=== PATIENT | male | born 1945 | race Caucasian/White ===

== ENCOUNTER → 2017-08-05 | Outpatient (CLI) | payer MEDICARE ==
--- NOTE | 2017-08-05 16:04 | P.STRESS ---
- Stress Test Note Stress Test Results/Findings: Exam Performed: NM stress cardiolite complete Exam Date: 08/05/17 Reason for Exam: Chest Pain Height: 5 ft 11 in Weight: 69.4 kg Protocol: Levon Cardiolite Stage: 1 Duration of Exercise: 4:01 Resting Heart Rate: 58 Resting Blood Pressure: 168/88 Maximum Achieved Heart Rate: 139 Maximum Achieved Blood Pressure: 190/77 85% PMHR: 128 100% PMHR: 150 METS: 5.8 Technologist Comment: Stress Test Results/Findings: This is a 71-year-old gentleman with history of hypertension, smoking and family history of ischemic heart disease being evaluated for symptoms of chest pain and shortness of breath. Baseline EKG showed a sinus rhythm with normal TX interval and QRS duration with occasional PVCs. Patient woke on the Levon protocol for about 4 minutes. The test was stopped because of complaints of shortness of breath. EKGs taken during the exercise showed artifacts with occasional PVCs. There is J-point depression with upsloping ST segments. Patient did not experience any chest pain. Final impression #1. Limited excess capacity #2 negative stress test #3 occasional to frequent PVCs during exercise #4 report on the nuclear images to be given by the radiologist.
--- NOTE | 2017-08-05 16:36 | ECHOF ---
Referral Reason:R07.9 Chest Pain, I10 Hypertension MEASUREMENTS -------- HEIGHT: 180.3 cm WEIGHT: 69.4 kg BP: 186/104 RVIDd: 3.3 cm (< 3.3) IVSd: 1.3 cm (0.6 - 1.1) LVIDd: 4.1 cm (3.9 - 5.3) LVPWd: 1.5 cm (0.6 - 1.1) IVSs: 1.4 cm LVIDs: 2.4 cm LVPWs: 1.6 cm LAESV Index (A-L): 34.87 ml/m Ao Diam: 3.0 cm (2.0 - 3.7) AV Cusp: 1.9 cm (1.5 - 2.6) LA Diam: 3.8 cm (2.7 - 3.8) EPSS: 0.5 cm MV E Leon: 0.88 m/s MV DecT: 203 ms MV A Leon: 1.02 m/s MV E/A Ratio: 0.87 RAP: 5.00 mmHg RVSP: 35.12 mmHg MV EF SLOPE: 107.94 mm/s (70 - 150) MV EXCURSION: 2.10 cm (> 18.000) FINDINGS -------- Resting bradycardia (HR<60bpm). This was a technically good study. The left ventricular size is normal. Left ventricular wall thickness is normal. Left ventricular systolic function is hyperdynamic with an estimated EF of >70%. The right ventricle is mildly enlarged. LA is moderately dilated 34-39 ml/m2 RA appears enlarged. Aortic valve is trileaflet and is mildly thickened. There is no evidence of aortic regurgitation. There is no evidence of aortic stenosis. The mitral valve leaflets are mildly thickened. Mild mitral regurgitation is present. Mild tricuspid regurgitation present. There is borderline pulmonary hypertension. The right ventr icular systolic pressure, as measured by Doppler, is 35.12mmHg. Trace/mild (physiologic) pulmonic regurgitation. The aortic root size is normal. Normal inferior vena cava with normal inspiratory collapse consistent with estimated right atrial pre ssure of 5 mmHg. There is no pericardial effusion. CONCLUSIONS -------- 1. Resting bradycardia (HR<60bpm). 2. This was a technically good study. 3. The left ventricular size is normal. 4. Left ventricular wall thickness is normal. 5. Left ventricular systolic function is hyperdynamic with an estimated EF of >70%. 6. The right ventricle is mildly enlarged. 7. LA is moderately dilated 34-39 ml/m2 8. RA appears enlarged. 9. Aortic valve is trileaflet and is mildly thickened. 10. The mitral valve leaflets are mildly thickened. 11. Mild mitral regurgitation is present. 12. Mild tricuspid regurgitation present. 13. There is borderline pulmonary hypertension. 14. The right ventricular systolic pressure, as measured by Doppler, is 35.12mmHg. 15. Trace/mild (physiologic) pulmonic regurgitation. 16. The aortic root size is normal. 17. There is no pericardial effusion. LEGAL ASSOCIATE: Steve Mitchell RDCS
--- NOTE | 2017-08-07 09:05 | NM ---
EXAMINATION TYPE: NM stress cardiolite complete DATE OF EXAM: 08/05/2017 COMPARISON: 04/16/2015 HISTORY: Chest pain and hypertension TECHNIQUE: After the intravenous administration of 10.47 mCi Tc 99m Sestamibi - Rest images obtained 45 minutes post injection. The patient exercised using a BROOKE protocol and 1 minute prior to peak exercise was injected with 26.8 mCi Tc 99m Sestamibi - Stress images obtained 30 minutes post inject ion. FINDINGS: Targeted heart rate was achieved during performance of the study. Review of stress and rest SPECT franki ges demonstrates no distinct perfusion abnormality. Gated analysis shows normal wall motion with an estimated left ventricular ejection fraction of 69 at rest and 59% at stress % (60% on the prior exam ). TID is calculated to be within normal limits at 0.9 IMPRESSION: 1. No scintigraphic evidence for reversible ischemia, unchanged from the prior exam of 2014. 2. Estimated left ventricular ejection fraction of 69% at rest and 59% at stress.
== END | disposition home or self-care (01) ==
LOC: RADNMMAIN 07:34
PROVIDERS: ATTEND Family Medicine
DX: I27.20 Pulmonary hypertension, unspecified (principal); I08.1 Rheumatic disorders of both mitral and tricuspid valves; I10 Essential (primary) hypertension
CPT/HCPCS: 93017; 93306; 78452; A9500

== ENCOUNTER → 2017-09-22 | Outpatient (CLI) | payer MEDICARE ==
--- NOTE | 2017-09-22 10:00 | XR ---
EXAMINATION TYPE: XR chest 2V DATE OF EXAM: 09/22/2017 COMPARISON: 01/18/2016 HISTORY: Shortness of breath TECHNIQUE: Frontal and lateral views of the chest are obtained. FINDINGS: Scattered senescent parenchymal changes noted. Hyperinflation compatible with COPD. No evidence for infiltrate. No evidence for atelectasis. Heart size is stable. Mediastinal structures are stable and grossly unremarkable. No evidence for hilar prominence. Degenerative changes dorsal spine. IMPRESSION: 1. No evidence for acute pulmonary disease.
== END | disposition home or self-care (01) ==
LOC: RADXRMAIN 09:42
PROVIDERS: ATTEND Otolaryngology
DX: R05 Cough (principal); R13.10 Dysphagia, unspecified
CPT/HCPCS: 71046

== ENCOUNTER 2017-09-23 10:26 | Day surgery (SDC) | payer MEDICARE ==
[~2017-09-23 10:26] MED LIST: LACTATED RINGERS 1,000 ML IV SCH
[2017-09-23] MEDS ORDERED: LIDOCAINE 1% 20 ML VIAL (10MG/ML) FOR IV START INTRADERMA ONE (12:32)
[2017-09-23 12:38] VITALS: RESP 16; TEMP 97.6
--- NOTE | 2017-09-23 12:44 | P.GSHP ---
History of Present Illness H&P Date: 09/23/17 Chief Complaint: GERD, epigastric pain This is a 71-year-old male sex complaints of GERD and epigastric pain. Patient rents today for EGD. Past Medical History Past Medical History: GERD/Reflux, Hypertension, Thyroid Disorder Additional Past Medical History / Comment(s): chronic knee pain History of Any Multi-Drug Resistant Organisms: None Reported Past Surgical History: Hernia Repair Additional Past Surgical History / Comment(s): Right shoulder Past Anesthesia/Blood Transfusion Reactions: No Reported Reaction Past Psychological History: No Psychological Hx Reported Smoking Status: Former smoker Past Alcohol Use History: Daily, Heavy Additional Past Alcohol Use History / Comment(s): STOPPED SMOKING IN JUN 2017. Smoked 2 PPD for > 26 yrs. 3 beers daily Past Drug Use History: None Reported - Past Family History Mother Family Medical History: Cancer Medications and Allergies Home Medications Medication Instructions Recorded Confirmed Type Levothyroxine Sodium [Synthroid] 25 mcg PO DAILY 12/07/13 09/18/17 History Benazepril HCl [Lotensin] 20 mg PO QAM 02/05/16 09/18/17 History Ibuprofen [Motrin] 800 mg PO ONCE PRN 02/27/16 09/18/17 History Aspirin [Adult Low Dose Aspirin EC] 81 mg PO DAILY 09/18/17 09/18/17 History Cholecalciferol [Vitamin D3] 1,000 unit PO DAILY 09/18/17 09/23/17 History Omeprazole 40 mg PO DAILY 09/18/17 09/23/17 History Allergies Allergy/AdvReac Type Severity Reaction Status Date / Time No Known Allergies Allergy Verified 09/18/17 11:50 Surgical - Exam Vital Signs Temp Pulse Resp BP Pulse Ox 97.6 F 55 L 16 168/88 98 09/23/17 12:36 09/23/17 12:36 09/23/17 12:36 09/23/17 12:36 09/23/17 12:36 - General well developed, no distress - Eyes PERRL - ENT normal pinna, normal nares - Neck no masses - Respiratory normal expansion - Cardiovascular Rhythm: regular - Abdomen Abdomen: soft, non tender Assessment and Plan Assessment: GERD, epigastric pain. We'll perform EGD.
[2017-09-23] MEDS ORDERED: PROPOFOL 10 MG/ML 20 ML VIAL IV ONE (12:53)
--- NOTE | 2017-09-23 13:06 | P.OP ---
Date of Procedure: 09/23/17 Preoperative Diagnosis: GERD Postoperative Diagnosis: Antral gastritis Hiatal hernia Esophagitis Procedure(s) Performed: EGD Anesthesia: MAC Surgeon: Miky Rivera Pathology: other (Antrum, esophagus) Condition: stable Disposition: PACU Description of Procedure: The patient's placed on the endoscopy table lateral position. He received IV sedation. The gastroscope placed oropharynx passed in the esophagus and into the stomach. The scope was then placed through the pylorus. The first and second portion of the duodenum appeared normal. The scope was then brought back the antrum and this appeared mildly inflamed. A biopsies performed. Scope was then retroflexed and the remainder of the stomach appeared normal. There was a moderate size hiatal hernia. The GE junction was at 38 cm. The distal esophagus appeared inflamed and a biopsies performed. The proximal esophagus appeared normal. The scope was withdrawn.
[2017-09-23 13:24] VITALS: PULSE 53
[2017-09-23 13:40] VITALS: BP 148/88
== END 2017-09-23 13:47 | disposition home or self-care (01) ==
LOC: ORWHC2ENDO 10:26
PROVIDERS: ATTEND Surgery
DX: K29.50 Unspecified chronic gastritis without bleeding (principal); I10 Essential (primary) hypertension; K21.0 Gastro-esophageal reflux disease with esophagitis; K44.9 Diaphragmatic hernia without obstruction or gangrene; G89.29 Other chronic pain; E07.9 Disorder of thyroid, unspecified; Z87.891 Personal history of nicotine dependence; Z79.899 Other long term (current) drug therapy; Z79.82 Long term (current) use of aspirin
CPT/HCPCS: 88305; 43239; J2704

== ENCOUNTER 2018-04-15 06:56 | Day surgery (SDC) | payer MEDICARE ==
[2018-04-13 13:20] VITALS: BMI 24.0
[~2018-04-15 06:56] MED LIST changes: +LIDOCAINE 1% 20 ML VIAL (10MG/ML) FOR IV START INTRADERMA PRN; +MIDAZOLAM 2 MG/2 ML VIAL IV PRN
[2018-04-15 07:15] VITALS: TEMP 97.8
[2018-04-15] MEDS ORDERED: LIDOCAINE 1% INJ 10MG/ML (20 ML MDV) ONE (07:47)
[2018-04-15] MEDS ORDERED: PROPOFOL 10 MG/ML 20 ML VIAL IV ONE (07:47)
--- NOTE | 2018-04-15 07:54 | P.GSHP ---
History of Present Illness H&P Date: 04/15/18 Chief Complaint: GERD 's is a 72-year-old male who's had some issues with GERD. Patient rents today for EGD. His recent esophagram shows no evidence of reflux. Or hiatal hernia. Past Medical History Past Medical History: GERD/Reflux, Hypertension, Osteoarthritis (OA), Thyroid Disorder Additional Past Medical History / Comment(s): abdominal pain, varicose veins, History of Any Multi-Drug Resistant Organisms: None Reported Past Surgical History: Hernia Repair, Joint Replacement Additional Past Surgical History / Comment(s): left knee replacement, rt shoulder surgery, kaleb cataracts Past Anesthesia/Blood Transfusion Reactions: No Reported Reaction Smoking Status: Former smoker - Past Family History Mother Family Medical History: Cancer Father Family Medical History: Cancer Daughter(s) Family Medical History: Cancer Medications and Allergies Home Medications Medication Instructions Recorded Confirmed Type Levothyroxine Sodium [Synthroid] 25 mcg PO DAILY 12/07/13 04/15/18 History Benazepril HCl [Lotensin] 20 mg PO QAM 02/05/16 04/15/18 History Aspirin [Adult Low Dose Aspirin EC] 81 mg PO DAILY 09/18/17 04/13/18 History Omeprazole [PriLOSEC] 20 mg PO AC-[id number] 04/13/18 04/15/18 History Allergies Allergy/AdvReac Type Severity Reaction Status Date / Time No Known Allergies Allergy Verified 04/15/18 07:09 Surgical - Exam Vital Signs Temp Pulse Resp BP Pulse Ox 97.8 F 85 18 160/77 97 04/15/18 07:14 04/15/18 07:14 04/15/18 07:14 04/15/18 07:14 04/15/18 07:14 - General well developed, well nourished, no distress - Eyes PERRL - ENT normal pinna - Neck no masses - Respiratory normal expansion - Cardiovascular Rhythm: regular - Abdomen Abdomen: soft, non tender Assessment and Plan Assessment: History of GERD. We'll perform EGD.
--- NOTE | 2018-04-15 08:02 | P.OP ---
Date of Procedure: 04/15/18 Preoperative Diagnosis: GERD Postoperative Diagnosis: Mild antral gastritis Small sliding hiatal hernia Esophageal biopsy pathology pending Procedure(s) Performed: EGD Anesthesia: MAC Surgeon: Miky Rivera Pathology: other (Antrum, esophagus) Condition: stable Disposition: PACU Description of Procedure: The patient's placed on the endoscopy table in the lateral position. He received IV sedation. The gastroscope placed oropharynx and passed in the esophagus and into the stomach. The scope was then placed through the pylorus. The first and second portion of the duodenum appeared normal. The scope was then brought back the antrum and this appeared mildly inflamed. A biopsies performed. Scope was then retroflexed and the remainder stomach appeared normal. There was a small sliding hiatal hernia. The GE junction was at 38 cm. The distal esophagus did not appear to have any significant inflammation. A biopsies performed. The proximal esophagus appeared normal. The scope was withdrawn for patient.
[2018-04-15 08:33] VITALS: RESP 16
[2018-04-15 08:46] VITALS: BP 148/86; PULSE 64
== END 2018-04-15 08:58 | disposition home or self-care (01) ==
LOC: ORWHC2ENDO 06:56
PROVIDERS: ATTEND Surgery
DX: K29.50 Unspecified chronic gastritis without bleeding (principal); K21.9 Gastro-esophageal reflux disease without esophagitis; K44.9 Diaphragmatic hernia without obstruction or gangrene; I10 Essential (primary) hypertension; M19.90 Unspecified osteoarthritis, unspecified site; E07.9 Disorder of thyroid, unspecified; Z87.891 Personal history of nicotine dependence; Z79.82 Long term (current) use of aspirin; Z79.890 Hormone replacement therapy; Z79.899 Other long term (current) drug therapy
CPT/HCPCS: 88305; 43239; J2001; J2704

== ENCOUNTER → 2018-05-26 | Outpatient (CLI) | payer MEDICARE ==
--- NOTE | 2018-05-26 14:38 | XR ---
EXAMINATION TYPE: XR chest 2V DATE OF EXAM: 05/26/2018 COMPARISON: Chest x-ray September 22, 2017 HISTORY: Cough for 2 days. TECHNIQUE: Frontal and lateral views of the chest are obtained. FINDINGS: There is chronic prideful change without suspicious focal air space opacity, pleural effus ion, or pneumothorax seen. The cardiac silhouette size is within normal limits with atherosclerotic change in the aortic knob. Surgical change right shoulder level is noted. IMPRESSION: Chronic emphysematous change without acute pulmonary process.
== END ==
LOC: RADXRMAIN 13:33
PROVIDERS: ATTEND Physician Assistant
DX: J43.9 Emphysema, unspecified (principal)
CPT/HCPCS: 71046

== ENCOUNTER → 2018-08-18 | Outpatient (CLI) | payer MEDICARE ==
--- NOTE | 2018-08-18 16:15 | XR ---
EXAMINATION TYPE: XR chest 2V DATE OF EXAM: 08/18/2018 COMPARISON: Chest x-ray May 26, 2018 HISTORY: Hemoptysis for 3 days. TECHNIQUE: Frontal and lateral views of the chest are obtained. FINDINGS: Underlying emphysematous change is felt present seen best on lateral view. There is no foca l air space opacity, pleural effusion, or pneumothorax seen. The cardiac silhouette size is within n ormal limits. Surgical change with large fixating stable right shoulder level is redemonstrated.. IMPRESSION: No acute cardiopulmonary process. No significant change from prior chest x-ray.
== END | disposition home or self-care (01) ==
LOC: RADXRMAIN 15:19
PROVIDERS: ATTEND Physician Assistant
DX: J20.9 Acute bronchitis, unspecified (principal)
CPT/HCPCS: 71046

== ENCOUNTER → 2019-04-26 | Outpatient (CLI) | payer MEDICARE ==
--- NOTE | 2019-04-26 09:38 | XR ---
EXAMINATION TYPE: XR chest 2V DATE OF EXAM: 04/26/2019 COMPARISON: 08/18/18 HISTORY: Shortness of breath TECHNIQUE: Frontal and lateral views of the chest are obtained. FINDINGS: Scattered senescent parenchymal changes noted. Hyperinflation compatible with COPD. No evidence for infiltrate. No evidence for atelectasis. Heart size is stable. Mediastinal structures are stable and grossly unremarkable. No evidence for hilar prominence. Degenerative changes dorsal spine. IMPRESSION: 1. No evidence for acute pulmonary disease.
== END | disposition home or self-care (01) ==
LOC: RADXRMAIN 08:54
PROVIDERS: ATTEND Family Medicine
DX: J18.9 Pneumonia, unspecified organism (principal)
CPT/HCPCS: 71046

== ENCOUNTER → 2019-05-16 | Outpatient (CLI) | payer MEDICARE ==
--- NOTE | 2019-05-16 09:37 | US ---
EXAMINATION TYPE: US duplex aorta DATE OF EXAM: 05/16/2019 COMPARISON: CT & US 2012 CLINICAL HISTORY: Z13.6 Screening for cardiovascular disorders. Intermittent abdomen pain EXAM MEASUREMENTS: Abdominal Aorta: Proximal: 2.4 x 2.4cm Mid: 1.6 x 1.8cm Distal: 1.3 x 1.6cm Bifurcation: not seen Visualized portions of abdominal aorta appear wnl, bifurcation obscured by overlying midline bowel ga s. IMPRESSION: Aortoiliac bifurcation is obscured by bowel gas. In the remainder of the abdominal aorta there is no sonographic evidence of aneurysm.
== END | disposition home or self-care (01) ==
LOC: RADUSWWP 08:01
PROVIDERS: ATTEND Family Medicine
DX: Z13.6 Encounter for screening for cardiovascular disorders (principal); R14.3 Flatulence
CPT/HCPCS: 93979

== ENCOUNTER → 2019-07-15 | Outpatient (CLI) | payer MEDICARE ==
--- NOTE | 2019-07-16 15:01 | ECHOF ---
Referral Reason:I27.20 Pulmonary Hypertension MEASUREMENTS -------- HEIGHT: 162.6 cm WEIGHT: 81.2 kg BP: RVIDd: 4.3 cm (< 3.3) IVSd: 1.2 cm (0.6 - 1.1) LVIDd: 4.2 cm (3.9 - 5.3) LVPWd: 0.9 cm (0.6 - 1.1) IVSs: 1.4 cm LVIDs: 3.1 cm LVPWs: 1.4 cm LA Diam: 4.3 cm (2.7 - 3.8) LAESV Index (A-L): 34.31 ml/m Ao Diam: 3.1 cm (2.0 - 3.7) AV Cusp: 2.3 cm (1.5 - 2.6) LA Diam: 4.5 cm (2.7 - 3.8) MV EXCURSION: 35.748 mm (> 18.000) MV EF SLOPE: 122 mm/s (70 - 150) EPSS: 0.5 cm MV E Elon: 0.90 m/s MV DecT: 217 ms MV A Leon: 1.04 m/s MV E/A Ratio: 0.86 RAP: 5.00 mmHg RVSP: 39.86 mmHg FINDINGS -------- Sinus rhythm. This was a technically good study. The left ventricular size is normal. There is mild concentric left ventricular hypertrophy. Overa ll left ventricular systolic function is normal with, an EF between 55 - 60 %. The diastolic fillin g pattern is normal for the age of the patient 17.48. The right ventricle is moderately enlarged. The left atrium is mildly dilated. LA is moderately dilated 34-39 ml/m2 The right atrial size is normal. There is mild aortic valve sclerosis. There is no evidence of aortic regurgitation. Mild mitral annular calcification present. Mild mitral regurgitation is present. Mild tricuspid regurgitation present. There is mild pulmonary hypertension. The right ventricular systolic pressure, as measured by Doppler, is 39.86mmHg. There is no pulmonic regurgitation present. The aortic root size is normal. There is no pericardial effusion. CONCLUSIONS -------- 1. Sinus rhythm. 2. This was a technically good study. 3. The left ventricular size is normal. 4. There is mild concentric left ventricular hypertrophy. 5. Overall left ventricular systolic function is normal with, an EF between 55 - 60 %. 6. The diastolic filling pattern is normal for the age of the patient 17.48 7. The right ventricle is moderately enlarged. 8. The left atrium is mildly dilated. 9. LA is moderately dilated 34-39 ml/m2 10. The right atrial size is normal. 11. There is mild aortic valve sclerosis. 12. Mild mitral annular calcification present. 13. Mild mitral regurgitation is present. 14. Mild tricuspid regurgitation present. 15. There is mild pulmonary hypertension. 16. The right ventricular systolic pressure, as measured by Doppler, is 39.86mmHg. 17. There is no pulmonic regurgitation present. 18. The aortic root size is normal. 19. There is no pericardial effusion. NEEDLE MAKER: Amanda Eduardo RDCS
== END | disposition home or self-care (01) ==
LOC: RADECHMAIN 14:45
PROVIDERS: ATTEND Family Medicine
DX: I08.1 Rheumatic disorders of both mitral and tricuspid valves (principal); I27.20 Pulmonary hypertension, unspecified
CPT/HCPCS: 93306

== ENCOUNTER 2019-09-22 08:54 | Emergency (ER) | payer MEDICARE ==
[2019-09-22 09:00] VITALS: RESP 18
[2019-09-22] MEDS ORDERED: SODIUM CHLORIDE 0.9% 1,000 ML IV STA (09:13)
[2019-09-22] MEDS ORDERED: PANTOPRAZOLE 40 MG/10 ML VIAL IVP STA (09:13)
--- NOTE | 2019-09-22 09:16 | ED ---
General Adult HPI - General Chief complaint: Dizziness Stated complaint: dizziness/black stool Time Seen by Provider: 09/22/19 09:05 Source: patient, RN notes reviewed Mode of arrival: ambulatory Limitations: no limitations - History of Present Illness Initial comments: This is a 73-year-old male presents emergency Department with chief complaint of dizziness, black stools. Patient states this felt dizzy last day or so states is more dizzy when he is down and turned to the right. patient states he's had no symptoms today. He denies any current headache, blurred vision or any focal weakness. Patient states that the dizziness is very mild. Patient talked to his primary care physician today on the phone describing his symptoms and was advised to come emergency department. Patient states that he had one episode of black stools yesterday. Denies any bright red blood and no rectal pain or abdominal pain Patient has no current abdominal pain, chest pain or shortness of breath no exertional dyspnea. Patient does take 81 mg aspirin, blood pressure medication. He states his last dose for his blood pressure medication was at midnight. No prior GI bleeding. He states he was evaluated once for this from by his Dr for black stools but was related to Pepto-Bismol use. Denies any leg pain, leg swelling denies any back discomfort. - Related Data Home Medications Medication Instructions Recorded Confirmed Levothyroxine Sodium [Synthroid] 25 mcg PO DAILY 12/07/13 09/22/19 Benazepril HCl [Lotensin] 20 mg PO QAM 02/05/16 09/22/19 Aspirin [Adult Low Dose Aspirin EC] 81 mg PO DAILY 09/18/17 09/22/19 Omeprazole [PriLOSEC] 20 mg PO AC-BRKFST 04/13/18 09/22/19 Albuterol Sulfate [Ventolin HFA] 2 puff INHALATION RT-Q4H PRN 09/22/19 09/22/19 Fluticasone Nasal [place] [Flonase 2 spr EA NOSTRIL BID PRN 09/22/19 09/22/19 Nasal [place]] traMADol HCL 50 mg PO QID PRN 09/22/19 09/22/19 Previous Rx's Medication Instructions Recorded Meclizine [Antivert] 25 mg PO TID PRN #15 tab 09/22/19 Allergies Allergy/AdvReac Type Severity Reaction Status Date / Time No Known Allergies Allergy Verified 09/22/19 09:32 Review of Systems ROS Statement: Those systems with pertinent positive or pertinent negative responses have been documented in the HPI. ROS Other: All systems not noted in ROS Statement are negative. Past Medical History Past Medical History: GERD/Reflux, Hypertension, Osteoarthritis (OA), Thyroid Disorder Additional Past Medical History / Comment(s): abdominal pain, varicose veins, History of Any Multi-Drug Resistant Organisms: None Reported Past Surgical History: Hernia Repair, Joint Replacement Additional Past Surgical History / Comment(s): left knee replacement, rt shoulder surgery, kaleb cataracts Past Anesthesia/Blood Transfusion Reactions: No Reported Reaction Past Psychological History: No Psychological Hx Reported Smoking Status: Former smoker Past Alcohol Use History: Daily Past Drug Use History: None Reported - Past Family History Mother Family Medical History: Cancer Father Family Medical History: Cancer Daughter(s) Family Medical History: Cancer General Exam Limitations: no limitations General appearance: alert, in no apparent distress, other (Blood pressure noted to be elevated will recheck in 10 minutes.) Head exam: Present: atraumatic, normocephalic, normal inspection Eye exam: Present: normal appearance, PERRL, EOMI. Absent: scleral icterus, conjunctival injection, periorbital swelling Neck exam: Present: normal inspection. Absent: tenderness, meningismus, lymphadenopathy Respiratory exam: Present: normal lung sounds bilaterally. Absent: respiratory distress, wheezes, rales, rhonchi, stridor Cardiovascular Exam: Present: regular rate, normal rhythm, normal heart sounds. Absent: systolic murmur, diastolic murmur, rubs, gallop, clicks GI/Abdominal exam: Present: soft, normal bowel sounds. Absent: distended, tenderness, guarding, rebound, rigid Rectal exam: Present: normal inspection, normal rectal tone. Absent: black stool, bloody stool Neurological exam: Present: alert, oriented X3, CN II-XII intact Skin exam: Present: warm, dry, intact, normal color. Absent: rash Course Vital Signs 09/22/19 09/22/19 08:57 09:16 Temperature 98.0 F Pulse Rate 95 77 Respiratory 18 18 Rate Blood Pressure 229/79 160/85 O2 Sat by Pulse 99 99 Oximetry - Reevaluation(s) Reevaluation #1: 09/22/19 09:51 Patient updated on results, reevaluated has not had any dizziness, is able turn right and left no episodes of dizziness. He is asymptomatic at this time pending Hemoccult and remaining labs. Reevaluation #2: 09/22/19 10:11 Patient updated on results. Patient was ambulated by myself and nurse in the emergency department with no difficulty with dizziness or ataxia. Patient will be discharged in stable condition. EKG Findings - EKG Comments: EKG Findings:: EKG performed at 9:10 sinus rhythm with rate of 70 NM 156 QRS 84 QT/QTC 370/402. Still patient pressure normal axis. - EKG Results: EKG: interpreted by SHERI Medical Decision Making - Medical Decision Making 73-year-old male presented for an episode of dizziness, one episode of black stool. He is Hemoccult negative. Patient stated that he ate a whole box quarrels whether this may have caused the symptoms. Patient hemoglobin is stable at 15, EKG labs and vitals are all within normal limits. Patient we discharged with close follow-up return parameters discussed patient agrees to plan. - Lab Data Result diagrams: 09/22/19 09:17 09/22/19 09:17 Lab Results 09/22/19 09/22/19 09/22/19 Range/Units 09:17 09:17 09:17 WBC 7.1 (3.8-10.6) k/uL RBC 4.95 (4.30-5.90) m/uL Hgb 15.4 (13.0-17.5) gm/dL Hct 47.7 (39.0-53.0) % MCV 96.3 (80.0-100.0) fL MCH 31.1 (25.0-35.0) pg MCHC 32.4 (31.0-37.0) g/dL RDW 13.0 (11.5-15.5) % Plt Count 228 (150-450) k/uL Neutrophils % 69 % Lymphocytes % 17 % Monocytes % 8 % Eosinophils % 4 % Basophils % 1 % Neutrophils # 4.9 (1.3-7.7) k/uL Lymphocytes # 1.2 (1.0-4.8) k/uL Monocytes # 0.6 (0-1.0) k/uL Eosinophils # 0.3 (0-0.7) k/uL Basophils # 0.0 (0-0.2) k/uL PT 9.9 (9.0-12.0) sec INR 0.9 (<1.2) APTT 22.9 (22.0-30.0) sec Sodium 134 L (137-145) mmol/L Potassium 4.4 (3.5-5.1) mmol/L Chloride 99 (98-107) mmol/L Carbon Dioxide 25 (22-30) mmol/L Anion Gap 10 mmol/L BUN 19 (9-20) mg/dL Creatinine 1.06 (0.66-1.25) mg/dL Est GFR (CKD-EPI)AfAm 81 (>60 ml/min/1.73 sqM) Est GFR (CKD-EPI)NonAf 70 (>60 ml/min/1.73 sqM) Glucose 101 H (74-99) mg/dL Calcium 9.4 (8.4-10.2) mg/dL Magnesium 1.7 (1.6-2.3) mg/dL Total Bilirubin 0.6 (0.2-1.3) mg/dL AST 32 (17-59) U/L ALT 30 (4-49) U/L Alkaline Phosphatase 73 (38-126) U/L Troponin I (0.000-0.034) ng/mL Total Protein 7.4 (6.3-8.2) g/dL Albumin 4.3 (3.5-5.0) g/dL Lipase 119 (23-300) U/L Stool Occult Blood (Negative) 09/22/19 09/22/19 Range/Units 09:17 09:53 WBC (3.8-10.6) k/uL RBC (4.30-5.90) m/uL Hgb (13.0-17.5) gm/dL Hct (39.0-53.0) % MCV (80.0-100.0) fL MCH (25.0-35.0) pg MCHC (31.0-37.0) g/dL RDW (11.5-15.5) % Plt Count (150-450) k/uL Neutrophils % % Lymphocytes % % Monocytes % % Eosinophils % % Basophils % % Neutrophils # (1.3-7.7) k/uL Lymphocytes # (1.0-4.8) k/uL Monocytes # (0-1.0) k/uL Eosinophils # (0-0.7) k/uL Basophils # (0-0.2) k/uL PT (9.0-12.0) sec INR (<1.2) APTT (22.0-30.0) sec Sodium (137-145) mmol/L Potassium (3.5-5.1) mmol/L Chloride (98-107) mmol/L Carbon Dioxide (22-30) mmol/L Anion Gap mmol/L BUN (9-20) mg/dL Creatinine (0.66-1.25) mg/dL Est GFR (CKD-EPI)AfAm (>60 ml/min/1.73 sqM) Est GFR (CKD-EPI)NonAf (>60 ml/min/1.73 sqM) Glucose (74-99) mg/dL Calcium (8.4-10.2) mg/dL Magnesium (1.6-2.3) mg/dL Total Bilirubin (0.2-1.3) mg/dL AST (17-59) U/L ALT (4-49) U/L Alkaline Phosphatase (38-126) U/L Troponin I <0.012 (0.000-0.034) ng/mL Total Protein (6.3-8.2) g/dL Albumin (3.5-5.0) g/dL Lipase (23-300) U/L Stool Occult Blood Negative (Negative) Disposition Clinical Impression: Vertigo Disposition: HOME SELF-CARE Condition: Stable Instructions (If sedation given, give patient instructions): Dizziness (ED) Additional Instructions: Please return to the Emergency Department if symptoms worsen or any other concerns. Prescriptions: Meclizine [Antivert] 25 mg PO TID PRN #15 tab PRN Reason: Vertigo Is patient prescribed a controlled substance at d/c from ED?: No Referrals: Cali Guerra MD [Primary Care Provider] - 1-2 days Time of Disposition: 10:12
[2019-09-22 09:33] LABS: Basophils % (A) 1 %; Eosinophils # (A) 0.3 k/uL (0-0.7); Eosinophils % (A) 4 %; HCT 47.7 % (39.0-53.0); HGB 15.4 gm/dL (13.0-17.5); Lymphocytes # (A) 1.2 k/uL (1.0-4.8); Lymphocytes % (A) 17 %; MCH 31.1 pg (25.0-35.0); MCHC 32.4 g/dL (31.0-37.0); MCV 96.3 fL (80.0-100.0); Mean Platelet Volume 6.8; Monocytes # (A) 0.6 k/uL (0-1.0); Monocytes % (A) 8 %; Neutrophils # (A) 4.9 k/uL (1.3-7.7); Neutrophils % (A) 69 %; Platelet Count 228 k/uL (150-450); RBC 4.95 m/uL (4.30-5.90); WBC 7.1 k/uL (3.8-10.6)
[2019-09-22 09:42] LABS: INR 0.9 (<1.2); Partial Thromboplastin Time 22.9 sec (22.0-30.0); Prothrombin Time 9.9 sec (9.0-12.0)
[2019-09-22 09:43] LABS: Albumin 4.3 g/dL (3.5-5.0); Calcium 9.4 mg/dL (8.4-10.2); Magnesium 1.7 mg/dL (1.6-2.3); Potassium 4.4 mmol/L (3.5-5.1); Total Bilirubin 0.6 mg/dL (0.2-1.3); Total Protein 7.4 g/dL (6.3-8.2)
[2019-09-22 10:18] VITALS: BP 163/92; PULSE 78; TEMP 98.1
== END 2019-09-22 10:18 | disposition home or self-care (01) ==
LOC: EC 08:54
DX: R42 Dizziness and giddiness (principal); K21.9 Gastro-esophageal reflux disease without esophagitis; I10 Essential (primary) hypertension; E07.9 Disorder of thyroid, unspecified; M19.90 Unspecified osteoarthritis, unspecified site; Z79.890 Hormone replacement therapy; Z79.82 Long term (current) use of aspirin; Z79.899 Other long term (current) drug therapy; Z87.891 Personal history of nicotine dependence; Z96.652 Presence of left artificial knee joint
CPT/HCPCS: 99284 ×2; 96374 ×2; 96361 ×2; 36415; 93005; 86900; 86901; 80053; 83690; 83735; 84484; 85025; 85610; 85730; 86850; 82272; C9113

== ENCOUNTER 2019-12-03 09:07 | Emergency (ER) | payer MEDICARE ==
[2019-12-03 09:19] VITALS: BP 148/94; PULSE 82; RESP 18; TEMP 98.2
[2019-12-03] MEDS ORDERED: KETOROLAC 30 MG/ML 1 ML VIAL IM STA (09:58)
[2019-12-03] MEDS ORDERED: CYCLOBENZAPRINE 10MG STARTER 3 TAB BTL PO STA (10:06)
--- NOTE | 2019-12-03 10:07 | ED ---
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 He presents emergency department today for evaluation for concern for one week of a stiff neck and shoulder pains. He reports that when he returned to work after being off from Covid shut down and now with returning and he does a lot of work with his shoulders and neck and has done heavy lifting. Patient states that he's been doing some lidocaine patches and taking his 's Motrin with some relief. Patient reports that he has had no fevers or chills. Denies any chest pain, shortness of breath or visual changes. He states that he is following with his primary care doctor. Patient denies any falls or trauma. - Related Data Home Medications Medication Instructions Recorded Confirmed Levothyroxine Sodium [Synthroid] 25 mcg PO DAILY 12/07/13 09/22/19 Benazepril HCl [Lotensin] 20 mg PO QAM 02/05/16 09/22/19 Aspirin [Adult Low Dose Aspirin EC] 81 mg PO DAILY 09/18/17 09/22/19 Omeprazole [PriLOSEC] 20 mg PO AC-BRKFST 04/13/18 09/22/19 Albuterol Sulfate [Ventolin HFA] 2 puff INHALATION RT-Q4H PRN 09/22/19 09/22/19 Fluticasone Nasal [place] [Flonase 2 spr EA NOSTRIL BID PRN 09/22/19 09/22/19 Nasal [place]] traMADol HCL 50 mg PO QID PRN 09/22/19 09/22/19 Previous Rx's Medication Instructions Recorded Meclizine [Antivert] 25 mg PO TID PRN #15 tab 09/22/19 Cyclobenzaprine [Flexeril] 10 mg PO TID #12 tab 12/03/19 Ibuprofen [Motrin] 800 mg PO Q8H #20 tab 12/03/19 Lidocaine 5% Patch [Lidoderm 5% 1 patch TOPICAL DAILY #20 patch 12/03/19 Patch] Allergies Allergy/AdvReac Type Severity Reaction Status Date / Time No Known Allergies Allergy Verified 12/03/19 09:15 Review of Systems ROS Statement: Those systems with pertinent positive or pertinent negative responses have been documented in the HPI. ROS Other: All systems not noted in ROS Statement are negative. Past Medical History Past Medical History: GERD/Reflux, Hypertension, Osteoarthritis (OA), Thyroid Disorder Additional Past Medical History / Comment(s): abdominal pain, varicose veins, History of Any Multi-Drug Resistant Organisms: None Reported Past Surgical History: Hernia Repair, Joint Replacement Additional Past Surgical History / Comment(s): left knee replacement, rt shoulder surgery, kaleb cataracts Past Anesthesia/Blood Transfusion Reactions: No Reported Reaction Past Psychological History: No Psychological Hx Reported Smoking Status: Former smoker Past Alcohol Use History: Daily Past Drug Use History: None Reported - Past Family History Mother Family Medical History: Cancer Father Family Medical History: Cancer Daughter(s) Family Medical History: Cancer General Exam - General Exam Comments Initial Comments: 73 -year-old male. No distress. Limitations: no limitations General appearance: alert, in no apparent distress Head exam: Present: atraumatic, normocephalic, normal inspection Eye exam: Present: normal appearance, PERRL, EOMI. Absent: scleral icterus, conjunctival injection, periorbital swelling ENT exam: Present: normal exam, mucous membranes moist Neck exam: Present: normal inspection, other (Patient has paraspinal and trapezius muscle tenderness.). Absent: tenderness, meningismus, lymphadenopathy Respiratory exam: Present: normal lung sounds bilaterally. Absent: respiratory distress, wheezes, rales, rhonchi, stridor Cardiovascular Exam: Present: regular rate, normal rhythm, normal heart sounds. Absent: systolic murmur, diastolic murmur, rubs, gallop, clicks GI/Abdominal exam: Present: soft, normal bowel sounds. Absent: distended, tenderness, guarding, rebound, rigid Extremities exam: Present: normal inspection, full ROM, normal capillary refill. Absent: tenderness, pedal edema, joint swelling, calf tenderness Back exam: Present: normal inspection Neurological exam: Present: alert, oriented X3, CN II-XII intact Psychiatric exam: Present: normal affect, normal mood Skin exam: Present: warm, dry, intact, normal color. Absent: rash Course Vital Signs 12/03/19 09:16 Temperature 98.2 F Pulse Rate 82 Respiratory 18 Rate Blood Pressure 148/94 O2 Sat by Pulse 98 Oximetry Medical Decision Making - Medical Decision Making 73-year-old male presents emergency department today for concern for neck muscle spasms pain since returning to work. 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 This time he does have range of motion of his neck. He has no specific cervical tenderness. Patient had no fall or trauma. At this time Patient does request us to have prescription for Motrin. I discussed the Patient can also be discharged with prescription for Lidoderm patches and advised follow-up with primary care physician. Disposition Clinical Impression: Neck muscle spasm Disposition: ADMITTED IP TO THIS [facility] Condition: Stable Instructions (If sedation given, give patient instructions): Cervical Strain (ED), Cervical Sprain (ED) Additional Instructions: Please use medication as discussed. Please follow up with family doctor if symptoms have not improved over the next two days. Please return to the emergency room if your symptoms increase or worsen or for any other concerns. Prescriptions: Cyclobenzaprine [Flexeril] 10 mg PO TID #12 tab Lidocaine 5% Patch [Lidoderm 5% Patch] 1 patch TOPICAL DAILY #20 patch Ibuprofen [Motrin] 800 mg PO Q8H #20 tab Is patient prescribed a controlled substance at d/c from ED?: No Referrals: Cali Guerra MD [Primary Care Provider] - 1-2 days Time of Disposition: 10:05
== END 2019-12-03 10:50 | disposition other institution (70) ==
LOC: EC 09:07
DX: M62.830 Muscle spasm of back (principal); M25.512 Pain in left shoulder; M25.511 Pain in right shoulder; K21.9 Gastro-esophageal reflux disease without esophagitis; I10 Essential (primary) hypertension; M19.90 Unspecified osteoarthritis, unspecified site; E07.9 Disorder of thyroid, unspecified; Z79.890 Hormone replacement therapy; Z79.82 Long term (current) use of aspirin; Z79.899 Other long term (current) drug therapy; Z96.652 Presence of left artificial knee joint; Z87.891 Personal history of nicotine dependence
CPT/HCPCS: 96372; 99284; J1885

== ENCOUNTER → 2020-02-21 | Outpatient (CLI) | payer MEDICARE ==
[2020-02-21 12:56] LABS: T4, Free (Free Thyroxine) 0.9 ng/dL (0.78-2.19)
--- NOTE | 2020-02-21 16:12 | US ---
EXAMINATION TYPE: US thyroid st tissue head/neck DATE OF EXAM: 02/21/2020 COMPARISON: NONE CLINICAL HISTORY: R22.1 SWELLING/MASS/LUMP IN NECK. GLAND SIZE: Right Lobe: 4.9 x 1.9 x 1.2 cm Overall Parenchyma: heterogenous Left Lobe: 4.4 x 1.6 x 1.4 cm Overall Parenchyma: heterogeneous Isthmus Thickness: 0.4 cm NODULES RIGHT: # of nodules measured on right: 2 1. 0.5 X 0.4 x 0.4 cm hypoechoic solid nodule at the upper pole with well-defined margins; . This nodule is wider than tall and shows intranodular vascularity. 2. 0.4 X 0.3 x 0.5 cm hypoechoic cystic nodule at the mid pole with well-defined margins; . This no dule is wider than tall and shows no intranodular vascularity. LEFT: # of nodules measured on left: 1 1. 1.1 X 1.1 x 0.9 cm isoechoic solid nodule at the lower pole with well-defined margins; . This n odule is wider than tall and shows intranodular vascularity. ISTHMUS: # of nodules measured in the isthmus: 0 Bilateral neck scanned, no evidence of lymphadenopathy. IMPRESSION: 1. 1 cm nodule left lobe thyroid. 2. Subcentimeter nodules right lobe thyroid
[2020-02-21 19:05] LABS: Hemoglobin A1C 5.3 % (4.0-6.0)
== END | disposition home or self-care (01) ==
LOC: RADUSWWP 10:46
PROVIDERS: ATTEND Otolaryngology
DX: E04.1 Nontoxic single thyroid nodule (principal); R53.83 Other fatigue; E03.9 Hypothyroidism, unspecified
CPT/HCPCS: 36415; 76536; 83036; 84439; 84443

== ENCOUNTER → 2020-04-18 | Outpatient (CLI) | payer MEDICARE ==
--- NOTE | 2020-04-18 22:22 | CT ---
EXAMINATION TYPE: CT abdomen pelvis w con DATE OF EXAM: 04/18/2020 COMPARISON: 10/28/2012 INDICATION: Abdominal pain and bloating DLP: 1169 mGycm, Automated exposure control for dose reduction was used. CONTRAST: 100 mL of Isovue 300. Study performed with Oral Contrast TECHNIQUE: Axial images were obtained from above the diaphragm to the pubic rami in the axial plane a t 5 mm thick sections. Reconstructed images are reviewed on the computer in the coronal plane. FINDINGS: Limited CT sections are obtained the lung bases. The lung bases are clear. CT ABDOMEN: Liver: There is an ill-defined hypodensity within the upper right lobe liver currently measures 1.5 c m which is smaller than the 3.4 cm previous may be a small hemangioma. Liver otherwise appears unrema rkable. Spleen: Normal Pancreas: Normal Adrenal glands: Is mild thickening of the bilateral adrenal glands measuring 1.0 cm on the left and 1 .4 cm on the right. Gallbladder: Gallstone is present. Kidneys: No masses are evident. No hydronephrosis is present. No cysts are present. Delayed images were obtained through the kidneys, which remain unremarkable. Aorta: Vascular calcification is within the aorta. Inferior vena cava: Normal. CT PELVIS: Loops of bowel within the abdomen and pelvis are normal. There are loops of bowel which are incom pletely distended or lack oral contrast limiting their evaluation. Appendix: Not visualized. No suspicious dilated tubular structures or inflammatory changes are eviden t. Urinary bladder: Decompressed Genitourinary structures: Prostate is slightly prominent and contains calcification Osseous structures: No suspicious lytic or sclerotic lesions. IMPRESSIONS: 1. Cholelithiasis. 2. Mild stable thickening of the adrenal glands bilaterally. 3. Suspected hemangioma right upper lobe liver appears smaller than the comparison.
== END | disposition home or self-care (01) ==
LOC: RADCTMAIN 13:03
PROVIDERS: ATTEND Nurse Practitioner
DX: K80.20 Calculus of gallbladder without cholecystitis without obstruction (principal); E27.8 Other specified disorders of adrenal gland; R10.9 Unspecified abdominal pain
CPT/HCPCS: 82565; 84520; 74177; 36415; Q9967

== ENCOUNTER → 2020-04-30 | Outpatient (CLI) | payer MEDICARE | END | disposition home or self-care (01) | LOC: LABWHC1 15:43 | PROVIDERS: ATTEND Family Medicine | DX: Z20.828 Contact with and (suspected) exposure to other viral communicable diseases (principal) | CPT/HCPCS: U0003; C9803 ==

== ENCOUNTER 2020-05-10 09:53 | Day surgery (SDC) | payer MEDICARE ==
[2020-05-09 09:34] VITALS: BMI 25.5
[~2020-05-10 09:53] MED LIST changes: +LIDOCAINE 1% (10MG/ML) FOR IV START INTRADERMA PRN; -LIDOCAINE 1% 20 ML VIAL (10MG/ML) FOR IV START INTRADERMA PRN; -MIDAZOLAM 2 MG/2 ML VIAL IV PRN
[2020-05-10 10:56] VITALS: TEMP 98.3
[2020-05-10] MEDS ORDERED: PROPOFOL 10 MG/ML 20 ML VIAL IV ONE (11:44)
[2020-05-10] MEDS ORDERED: LIDOCAINE 1% INJ 10MG/ML (20 ML MDV) ONE (11:44)
--- NOTE | 2020-05-10 11:49 | P.GSHP ---
History of Present Illness H&P Date: 05/10/20 Chief Complaint: GERD screeningColonoscopy This a 74-year-old male presents today for EGD and screening colonoscopy. Patient denies any rectal bleeding. He states had GERD for some time. Past Medical History Past Medical History: COPD, GERD/Reflux, Hypertension, Osteoarthritis (OA), Thyroid Disorder Additional Past Medical History / Comment(s): varicose veins, abdominal pain History of Any Multi-Drug Resistant Organisms: None Reported Past Surgical History: Hernia Repair, Joint Replacement Additional Past Surgical History / Comment(s): left knee replacement, rt shoulder surgery, kaleb cataracts Past Anesthesia/Blood Transfusion Reactions: No Reported Reaction Smoking Status: Former smoker - Past Family History Mother Family Medical History: Cancer Father Family Medical History: Cancer Daughter(s) Family Medical History: Cancer Additional Family Medical History / Comment(s): liver and kidney Medications and Allergies Home Medications Medication Instructions Recorded Confirmed Type Levothyroxine Sodium [Synthroid] 25 mcg PO DAILY 12/07/13 05/10/20 History Benazepril HCl [Lotensin] 20 mg PO QAM 02/05/16 05/10/20 History Aspirin [Adult Low Dose Aspirin EC] 81 mg PO DAILY 09/18/17 05/10/20 History Omeprazole [PriLOSEC] 20 mg PO AC-BRKFST 04/13/18 05/10/20 History Albuterol Sulfate [Ventolin HFA] 2 puff INHALATION RT-Q4H PRN 09/22/19 05/10/20 History Fluticasone Nasal [place] [Flonase 2 spr EA NOSTRIL BID PRN 09/22/19 05/10/20 History Nasal [place]] Ibuprofen [Motrin] 800 mg PO Q8H PRN 05/09/20 05/10/20 History Latanoprost/Pf [Latanoprost 0.005% 1 drop BOTH EYES HS 05/09/20 05/10/20 History Eye Drop] Allergies Allergy/AdvReac Type Severity Reaction Status Date / Time No Known Allergies Allergy Verified 05/10/20 10:46 Surgical - Exam Vital Signs Temp Pulse Resp BP Pulse Ox 98.3 F 83 18 154/88 98 05/10/20 10:54 05/10/20 10:54 05/10/20 10:54 05/10/20 10:54 05/10/20 10:54 - General well developed, well nourished, no distress - Eyes PERRL - ENT normal pinna - Neck no masses - Respiratory normal expansion - Cardiovascular Rhythm: regular - Abdomen Abdomen: soft, non tender Assessment and Plan Assessment: GERD. We'll perform EGD. We'll perform screening colonoscopy.
--- NOTE | 2020-05-10 12:04 | P.OP ---
Date of Procedure: 05/10/20 Preoperative Diagnosis: GERD. Screening colonoscopy Postoperative Diagnosis: Antral gastritis Procedure(s) Performed: Colonoscopy EGD Anesthesia: BOB PATEL Surgeon: Miky Rivera Pathology: other (Antrum) Description of Procedure: Patient's placed on the endoscopy table in the lateral position. He received IV sedation. The gastroscope patient oropharynx passed in the esophagus and stomach. Scope was placed through the pylorus. First and second portion of duodenum appeared normal. Scope was then brought back the antrum this appeared mildly inflamed. A biopsies performed. Scope was unretroflexed and remainder of the stomach appeared normal. The GE junction was at 40 cm the distal esophagus was normal. The proximal esophagus was normal. Scope was withdrawn for patient. Next digital rectal exam was performed which revealed no abnormalities. The prostate was symmetric without nodules. The flexible colonoscope was then placed patient anus passed throughout the entire colon. The ileocecal valve was visualized. The cecum, ascending and transverse colon appeared normal. In the descending; there was mild diverticular changes. Scope was then brought back into the rectum this appeared normal. Scope was withdrawn for patient.
[2020-05-10 12:19] VITALS: RESP 16
[2020-05-10 12:41] VITALS: BP 143/77; PULSE 61
== END 2020-05-10 13:10 | disposition home or self-care (01) ==
LOC: ORWHC2ENDO 09:53
PROVIDERS: ATTEND Surgery
DX: Z12.11 Encounter for screening for malignant neoplasm of colon (principal); K57.30 Diverticulosis of large intestine without perforation or abscess without bleeding; K29.70 Gastritis, unspecified, without bleeding; I10 Essential (primary) hypertension; J44.9 Chronic obstructive pulmonary disease, unspecified; E07.9 Disorder of thyroid, unspecified; F41.9 Anxiety disorder, unspecified; F32.9 Major depressive disorder, single episode, unspecified; K21.9 Gastro-esophageal reflux disease without esophagitis; M19.90 Unspecified osteoarthritis, unspecified site; I83.90 Asymptomatic varicose veins of unspecified lower extremity; Z79.82 Long term (current) use of aspirin; Z79.1 Long term (current) use of non-steroidal anti-inflammatories (NSAID); Z87.891 Personal history of nicotine dependence; Z79.890 Hormone replacement therapy; Z79.899 Other long term (current) drug therapy; Z96.652 Presence of left artificial knee joint; Z98.41 Cataract extraction status, right eye; Z98.42 Cataract extraction status, left eye; Z98.890 Other specified postprocedural states; Z80.0 Family history of malignant neoplasm of digestive organs; Z80.51 Family history of malignant neoplasm of kidney; Z80.9 Family history of malignant neoplasm, unspecified
CPT/HCPCS: 43239; 88305; G0121; J2001; J2704; 45378

== ENCOUNTER → 2020-05-11 | Day surgery (SDC) | payer MEDICARE ==
[2020-05-09 09:16] VITALS: BMI 25.5
[~2020-05-11] MED LIST changes: +ACETAMINOPHEN TAB 500 MG TAB PO PRN; +BUPIVACAINE (PF) 0.25% 30 ML VIAL SQ ONE; +DEXAMETHASONE SOD PHOSPHATE 4 MG/ML 1 ML VIAL IV ONE; +GLYCOPYRROLATE 0.2 MG/ML 2 ML VIAL ONE; +HEPARIN SODIUM,PORCINE 5,000 UNIT/ML 1 ML VIAL SQ PRN; +HYDROmorphone 0.5 MG/0.5 ML SYRINGE IVP PRN; +LACTATED RINGERS 1,000 ML IV ONE; +LIDOCAINE 1% (10MG/ML) FOR IV START INTRADERMA ONE; -LIDOCAINE 1% (10MG/ML) FOR IV START INTRADERMA PRN; +LIDOCAINE 1% INJ 10MG/ML (20 ML MDV) ONE; +MIDAZOLAM 2 MG/2 ML VIAL IV PRN; +MIDAZOLAM 2 MG/2 ML VIAL ONE; +NEOSTIGMINE 1 MG/ML 10 ML VIAL ONE; +ONDANSETRON 4 MG/2 ML VIAL IVP ONE; +PROPOFOL 10 MG/ML 20 ML VIAL IV ONE; +ROCURONIUM 10 MG/ML (10 ML VIAL) IV ONE; +SCOPOLAMINE 1.5MG/72HR PATCH TRANSDERM ONE; +SUCCINYLCHOLINE CHLORIDE 100 MG/5 ML SYR IV ONE; +fentaNYL (PF) 50 MCG/ML 2 ML AMP ONE
--- NOTE | 2020-05-11 08:33 | P.GSHP ---
History of Present Illness H&P Date: 05/11/20 Chief Complaint: Right upper quadrant pain This a 74-year-old male with history of right upper quadrant pain. Patient underwent have gallstones. He presents today for laparoscopic cholecystectomy. Past Medical History Past Medical History: COPD, GERD/Reflux, Hypertension, Osteoarthritis (OA), Thyroid Disorder Additional Past Medical History / Comment(s): varicose veins, abdominal pain History of Any Multi-Drug Resistant Organisms: None Reported Past Surgical History: Hernia Repair, Joint Replacement Additional Past Surgical History / Comment(s): left knee replacement, rt shoulder surgery, kaleb cataracts Past Anesthesia/Blood Transfusion Reactions: No Reported Reaction Smoking Status: Former smoker - Past Family History Mother Family Medical History: Cancer Father Family Medical History: Cancer Daughter(s) Family Medical History: Cancer Additional Family Medical History / Comment(s): liver and kidney Medications and Allergies Home Medications Medication Instructions Recorded Confirmed Type Levothyroxine Sodium [Synthroid] 25 mcg PO DAILY 12/07/13 05/11/20 History Benazepril HCl [Lotensin] 20 mg PO QAM 02/05/16 05/11/20 History Aspirin [Adult Low Dose Aspirin EC] 81 mg PO DAILY 09/18/17 05/11/20 History Omeprazole [PriLOSEC] 20 mg PO AC-BRKFST 04/13/18 05/11/20 History Albuterol Sulfate [Ventolin HFA] 2 puff INHALATION RT-Q4H PRN 09/22/19 05/11/20 History Fluticasone Nasal [place] [Flonase 2 spr EA NOSTRIL BID PRN 09/22/19 05/11/20 History Nasal [place]] Ibuprofen [Motrin] 800 mg PO Q8H PRN 05/09/20 05/11/20 History Latanoprost/Pf [Latanoprost 0.005% 1 drop BOTH EYES HS 05/09/20 05/11/20 History Eye Drop] Allergies Allergy/AdvReac Type Severity Reaction Status Date / Time No Known Allergies Allergy Verified 05/11/20 06:19 Surgical - Exam Vital Signs Temp Pulse BP Pulse Ox 97.6 F 83 167/87 99 05/11/20 06:27 05/11/20 06:27 05/11/20 06:27 05/11/20 06:27 - General well developed, well nourished, no distress - Eyes PERRL - ENT normal pinna - Neck no masses - Respiratory normal expansion - Cardiovascular Rhythm: regular - Abdomen Right upper quadrant pain Abdomen: soft Assessment and Plan Assessment: Cholecystitis. We'll perform laparoscopic cholecystectomy
--- NOTE | 2020-05-11 08:34 | P.OP ---
Date of Procedure: 05/11/20 Preoperative Diagnosis: Cholecystitis Postoperative Diagnosis: Cholecystitis Procedure(s) Performed: Laparoscopic cholecystectomy Anesthesia: AMANDA Surgeon: Miky Rivera Estimated Blood Loss (ml): 10 Pathology: other (Gallbladder) Condition: stable Disposition: PACU Description of Procedure: The patient was placed on the operating table. The patient received a general endotracheal tube anesthesia. The patients abdomen was prepped and draped in the usual sterile fashion. Through an infraumbilical stab incision, the fascia of the anterior abdominal wall was grasped with a pair of Kochers and then the Veress needle was placed in the peritoneal cavity. Position of the Veress needle was confirmed with positive drop test. The abdomen was then insufflated. After adequate insufflation, the 10 mm trocar was placed in the peritoneal cavity. Following this the laparoscope was placed in the peritoneal cavity. The patient was placed in the head-up, right side up position and then a 5 mm trocar was placed in the right lateral and right subcostal position under direct visualization. A 8 mm trocar was placed in the epigastric position. The gallbladder was grasped in the fundus and infundibulum. Traction on the gallbladder was placed in the lateral and the cephalad positions. The triangle of Calot was visualized.. The cystic duct was bluntly dissected until the union of the cystic duct and common bile duct was seen. A critical view of safety was achieved. The cystic duct was then divided and sealed with the Harmonic scissors. A PDS Endoloop was then placed throughout the cystic duct stump. The cystic artery divided and sealed with the Harmonic scissors. The gallbladder was then removed from the liver bed using Harmonic scissors. The gallbladder was then extracted through the epigastric port site. Operative field was checked for any bleeding spots and Harmonic scissors was used to coagulate the liver bed. The abdomen was irrigated. The trocars were removed. The skin was closed using interrupted 3-0 Vicryl suture. Dermabond dressing were applied. The patient tolerated the procedure well.
[2020-05-11 08:46] VITALS: TEMP 97.9
[2020-05-11 10:29] VITALS: BP 156/88; PULSE 61; RESP 16
== END | disposition home or self-care (01) ==
LOC: OR 06:04
PROVIDERS: ATTEND Surgery
DX: K80.12 Calculus of gallbladder with acute and chronic cholecystitis without obstruction (principal); J44.9 Chronic obstructive pulmonary disease, unspecified; I10 Essential (primary) hypertension; M19.90 Unspecified osteoarthritis, unspecified site; K21.9 Gastro-esophageal reflux disease without esophagitis; E07.9 Disorder of thyroid, unspecified; I83.90 Asymptomatic varicose veins of unspecified lower extremity; Z79.890 Hormone replacement therapy; Z79.82 Long term (current) use of aspirin; Z79.1 Long term (current) use of non-steroidal anti-inflammatories (NSAID); Z87.891 Personal history of nicotine dependence; Z96.652 Presence of left artificial knee joint; Z98.41 Cataract extraction status, right eye; Z98.42 Cataract extraction status, left eye; Z80.0 Family history of malignant neoplasm of digestive organs; Z80.51 Family history of malignant neoplasm of kidney; Z98.890 Other specified postprocedural states; Z79.899 Other long term (current) drug therapy
CPT/HCPCS: 88304; 47562; J2250; J1644; J1100; J2710; J0690; J2405; J2001; J3010; J0330; J2704

== ENCOUNTER → 2020-09-07 | Outpatient (CLI) | payer MEDICARE ==
--- NOTE | 2020-09-07 16:18 | US ---
EXAMINATION TYPE: US thyroid st tissue head/neck DATE OF EXAM: 09/07/2020 COMPARISON: 02/21/2020 CLINICAL HISTORY: 74-year-old male E04.1 thyroid nodule. TECHNIQUE: Multiple sonographic images of the thyroid gland are obtained. FINDINGS: GLAND SIZE: Right Lobe: 5.6 x 2.0 x 1.5 cm Overall Parenchyma: homogenous Left Lobe: 4.2 x 2.0 x 2.2 cm Overall Parenchyma: homogeneous Isthmus Thickness: 0.3 cm NODULES RIGHT: # of nodules measured on right: 1. 0.5 x 0.3 x 0.5 cm, upper, solid or almost completely solid, hypoechoic nodule, which is wider th an tall, with smooth margins, without echogenic foci. Prior size: 0.5 X 0.4 x 0.4 cm 2. 0.6 X 0.3 x 0.6 cm, mid, cyst Prior size: 0.4 X 0.3 x 0.5 cm LEFT: # of nodules measured on left: 1. 1.0 X 1.0 x 1.0 cm, lower, solid or almost completely solid, isoechoic nodule, which is wider th an tall, with smooth margins, without echogenic foci. Prior size: 1.1 X 1.1 x 0.9 cm ISTHMUS: # of nodules measured in the isthmus: 0 Bilateral neck scanned, no evidence of lymphadenopathy. IMPRESSION: Borderline thyromegaly. A solid 1.0 cm nodule on the left is unchanged. A tiny solid 5 mm nodule on t he right is also unchanged.
== END | disposition home or self-care (01) ==
LOC: RADUSWWP 14:58
PROVIDERS: ATTEND Otolaryngology
DX: E04.1 Nontoxic single thyroid nodule (principal)
CPT/HCPCS: 76536

== ENCOUNTER 2020-12-24 09:45 | Day surgery (SDC) | payer MEDICARE ==
[2020-12-20 15:02] VITALS: BMI 26.2
[~2020-12-24 09:45] MED LIST changes: -BUPIVACAINE (PF) 0.25% 30 ML VIAL SQ ONE; -GLYCOPYRROLATE 0.2 MG/ML 2 ML VIAL ONE; -HEPARIN SODIUM,PORCINE 5,000 UNIT/ML 1 ML VIAL SQ PRN; +HEPARIN SODIUM,PORCINE/PF 5,000 UNIT/0.5 ML SYRINGE SQ PRN; -LACTATED RINGERS 1,000 ML IV ONE; -LIDOCAINE 1% (10MG/ML) FOR IV START INTRADERMA ONE; +LIDOCAINE 1% (10MG/ML) FOR IV START INTRADERMA PRN; -LIDOCAINE 1% INJ 10MG/ML (20 ML MDV) ONE; -MIDAZOLAM 2 MG/2 ML VIAL ONE; -NEOSTIGMINE 1 MG/ML 10 ML VIAL ONE; +ONDANSETRON 4 MG/2 ML VIAL IVP PRN; -PROPOFOL 10 MG/ML 20 ML VIAL IV ONE; -ROCURONIUM 10 MG/ML (10 ML VIAL) IV ONE; -SCOPOLAMINE 1.5MG/72HR PATCH TRANSDERM ONE; -SUCCINYLCHOLINE CHLORIDE 100 MG/5 ML SYR IV ONE; +fentaNYL (PF) 50 MCG/ML 2 ML AMP IVP PRN; -fentaNYL (PF) 50 MCG/ML 2 ML AMP ONE
[2020-12-24 12:00] LABS: Basophils % (A) 1 %; Eosinophils # (A) 0.2 k/uL (0-0.7); Eosinophils % (A) 2 %; HCT 46.6 % (39.0-53.0); HGB 15.2 gm/dL (13.0-17.5); Lymphocytes # (A) 1.8 k/uL (1.0-4.8); Lymphocytes % (A) 21 %; MCH 32.2 pg (25.0-35.0); MCHC 32.6 g/dL (31.0-37.0); MCV 98.6 fL (80.0-100.0); Mean Platelet Volume 7.5; Monocytes # (A) 0.7 k/uL (0-1.0); Monocytes % (A) 8 %; Neutrophils # (A) 5.7 k/uL (1.3-7.7); Neutrophils % (A) 68 %; Platelet Count 262 k/uL (150-450); RBC 4.72 m/uL (4.30-5.90); RDW 13.2 % (11.5-15.5); WBC 8.5 k/uL (3.8-10.6)
[2020-12-24 12:18] LABS: Calcium 9.8 mg/dL (8.4-10.2)
[2020-12-24 12:28] LABS: Potassium 4.9 mmol/L (3.5-5.1)
--- NOTE | 2020-12-24 13:01 | P.GSHP ---
History of Present Illness H&P Date: 12/24/20 Chief Complaint: Incisional hernia This a 75-year-old male who presents today for open repair of incisional hernia. Patient developed incisional hernia in the epigastric area. Past Medical History Past Medical History: COPD, GERD/Reflux, Hypertension, Osteoarthritis (OA), Thyroid Disorder Additional Past Medical History / Comment(s): incisional hernia, varicose veins, History of Any Multi-Drug Resistant Organisms: None Reported Past Surgical History: Cholecystectomy, Hernia Repair, Joint Replacement Additional Past Surgical History / Comment(s): left knee replacement, rt shoulder surgery, kaleb cataracts Past Anesthesia/Blood Transfusion Reactions: No Reported Reaction Smoking Status: Former smoker - Past Family History Mother Family Medical History: Cancer Father Family Medical History: Cancer Daughter(s) Family Medical History: Cancer Additional Family Medical History / Comment(s): liver and kidney Medications and Allergies Home Medications Medication Instructions Recorded Confirmed Type Levothyroxine Sodium [Synthroid] 25 mcg PO DAILY 12/07/13 12/24/20 History Benazepril HCl [Lotensin] 20 mg PO QAM 02/05/16 12/24/20 History Aspirin [Adult Low Dose Aspirin EC] 81 mg PO DAILY 09/18/17 12/24/20 History Omeprazole [PriLOSEC] 20 mg PO AC-BRKFST 04/13/18 12/24/20 History Albuterol Sulfate [Ventolin HFA] 2 puff INHALATION RT-Q4H PRN 09/22/19 12/24/20 History Fluticasone Nasal [place] [Flonase 2 spr EA NOSTRIL BID PRN 09/22/19 12/24/20 History Nasal [place]] Latanoprost/Pf [Latanoprost 0.005% 1 drop BOTH EYES HS 05/09/20 12/24/20 History Eye Drop] Cholecalciferol [Vitamin D3 (25 50 mcg PO DAILY 12/20/20 12/24/20 History Mcg = 1000 Iu)] Ibuprofen [Motrin] 600 mg PO Q8HR PRN 12/20/20 12/24/20 History Allergies Allergy/AdvReac Type Severity Reaction Status Date / Time No Known Allergies Allergy Verified 12/24/20 11:16 Surgical - Exam Vital Signs Temp Pulse Resp BP Pulse Ox 97.8 F 66 16 144/85 98 12/24/20 11:10 12/24/20 11:10 12/24/20 11:10 12/24/20 11:10 12/24/20 11:10 - General well developed, well nourished, no distress - Eyes PERRL - ENT normal pinna - Neck no masses - Respiratory normal expansion - Cardiovascular Rhythm: regular - Abdomen Abdomen: soft, non tender Hernia: incisional (5 cm incisional hernia and epigastric area) Results - Labs 12/24/20 11:41 12/24/20 11:41 Diabetes panel 12/24/20 Range/Units 11:41 Sodium 138 (137-145) mmol/L Potassium 4.9 (3.5-5.1) mmol/L Chloride 105 (98-107) mmol/L Carbon Dioxide 25 (22-30) mmol/L BUN 19 (9-20) mg/dL Creatinine 0.98 (0.66-1.25) mg/dL Glucose 97 (74-99) mg/dL Calcium 9.8 (8.4-10.2) mg/dL Calcium panel 12/24/20 Range/Units 11:41 Calcium 9.8 (8.4-10.2) mg/dL Pituitary panel 12/24/20 Range/Units 11:41 Sodium 138 (137-145) mmol/L Potassium 4.9 (3.5-5.1) mmol/L Chloride 105 (98-107) mmol/L Carbon Dioxide 25 (22-30) mmol/L BUN 19 (9-20) mg/dL Creatinine 0.98 (0.66-1.25) mg/dL Glucose 97 (74-99) mg/dL Calcium 9.8 (8.4-10.2) mg/dL Adrenal panel 12/24/20 Range/Units 11:41 Sodium 138 (137-145) mmol/L Potassium 4.9 (3.5-5.1) mmol/L Chloride 105 (98-107) mmol/L Carbon Dioxide 25 (22-30) mmol/L BUN 19 (9-20) mg/dL Creatinine 0.98 (0.66-1.25) mg/dL Glucose 97 (74-99) mg/dL Calcium 9.8 (8.4-10.2) mg/dL Assessment and Plan Assessment: Incisional hernia. We'll perform open repair.
[2020-12-24] MEDS ORDERED: NEOSTIGMINE 1 MG/ML 10 ML VIAL ONE (13:30)
[2020-12-24] MEDS ORDERED: SUGAMMADEX SODIUM 500 MG/5 ML SDV IV ONE (13:30)
[2020-12-24] MEDS ORDERED: GLYCOPYRROLATE 0.2 MG/ML 2 ML VIAL ONE (13:30)
[2020-12-24] MEDS ORDERED: MIDAZOLAM 2 MG/2 ML VIAL ONE (13:30)
[2020-12-24] MEDS ORDERED: LIDOCAINE 1% INJ 10MG/ML (20 ML MDV) ONE (13:30)
[2020-12-24] MEDS ORDERED: ROCURONIUM 10 MG/ML (5 ML VIAL) IV ONE (13:30)
[2020-12-24] MEDS ORDERED: fentaNYL (PF) 50 MCG/ML 2 ML AMP ONE (13:30)
[2020-12-24] MEDS ORDERED: SUCCINYLCHOLINE CHLORIDE 100 MG/5 ML SYR IV ONE (13:30)
[2020-12-24] MEDS ORDERED: PROPOFOL 10 MG/ML 20 ML VIAL IV ONE (13:30)
[2020-12-24] MEDS ORDERED: LIDOCAINE 2%-EPI 1:100,000 20 ML VIAL SQ ONE (13:56)
--- NOTE | 2020-12-24 14:04 | P.OP ---
Date of Procedure: 12/24/20 Preoperative Diagnosis: Incisional hernia Postoperative Diagnosis: Incisional hernia Procedure(s) Performed: Repair of incisional hernia Anesthesia: AMANDA Surgeon: Miky Rivera Estimated Blood Loss (ml): 10 Pathology: none sent Condition: stable Disposition: PACU Description of Procedure: The patient's placed on the operating table in supine position. He received general anesthesia. His abdomen was prepped and draped usual fashion. A skin incision was made over the hernia mass in the epigastric area. Using blunt sharp dissection with cautery the subcutaneous tissue divided. The hernia was visualized. The fascial defect was closed using 0 Ethibond suture. Skin was closed interrupted 3-0 Monocryl suture. Dermabond was applied. Patient top she will was sent to recovery room in stable condition.
[2020-12-24 14:17] VITALS: TEMP 97
[2020-12-24 14:23] VITALS: RESP 18
[2020-12-24] MEDS ORDERED: KETOROLAC 15 MG/ML 1 ML VIAL ONE (14:34)
[2020-12-24] MEDS ORDERED: KETOROLAC 15 MG/ML 1 ML VIAL IVP ONE (14:37)
[2020-12-24] MEDS ORDERED: IBUPROFEN 200 MG TAB PO ONE (15:33)
[2020-12-24 15:43] VITALS: BP 132/78; PULSE 67
== END 2020-12-24 15:52 | disposition home or self-care (01) ==
LOC: OR 09:45
PROVIDERS: ATTEND Surgery
DX: K43.2 Incisional hernia without obstruction or gangrene (principal); J44.9 Chronic obstructive pulmonary disease, unspecified; K21.9 Gastro-esophageal reflux disease without esophagitis; I10 Essential (primary) hypertension; M19.90 Unspecified osteoarthritis, unspecified site; E07.9 Disorder of thyroid, unspecified; I83.90 Asymptomatic varicose veins of unspecified lower extremity; Z90.49 Acquired absence of other specified parts of digestive tract; Z96.652 Presence of left artificial knee joint; Z98.890 Other specified postprocedural states; Z98.42 Cataract extraction status, left eye; Z98.41 Cataract extraction status, right eye; Z87.891 Personal history of nicotine dependence; Z80.51 Family history of malignant neoplasm of kidney; Z80.0 Family history of malignant neoplasm of digestive organs; Z79.890 Hormone replacement therapy; Z79.899 Other long term (current) drug therapy; Z97.2 Presence of dental prosthetic device (complete) (partial)
CPT/HCPCS: 80048; 85025; 49560; J2250; J1100; J2710; J0690; J2405; J2001; J3010; J1885; J0330; J2704; J1170

== ENCOUNTER 2021-01-12 23:56 | Emergency (ER) | payer MEDICARE ==
[2021-01-13 00:01] VITALS: BP 143/83; PULSE 80; RESP 20; TEMP 97.8
[2021-01-13] MEDS ORDERED: LIDOCAINE 1%-EPI 1:100,000 20 ML VIAL SQ STA (00:24)
--- NOTE | 2021-01-13 01:06 | ED ---
ENT HPI - General Chief complaint: ENT Stated complaint: Mouth wound Time Seen by Provider: 01/13/21 00:06 Source: patient Mode of arrival: ambulatory Limitations: no limitations - History of Present Illness Initial comments: Patient is a 75-year-old male presenting to the emergency Department with complaints of a wound on his upper lip that will not stop bleeding. He states on December 24, he had a hiatal hernia repaired by Dr. Rivera, after that surgery handed up with a small blister on his upper lip. He states he did have a "blackened area on his upper lip for the last month, then after the surgery it turned into a blister." Patient states they discussed cutting it off but is not scheduled for another 2 months. Patient states he was eating a sub this evening when it started to bleed. He states he's been trying to get to stop over has been unsuccessful. He is not on blood thinners. He has no pain. There are no further complaints. - Related Data Home Medications Medication Instructions Recorded Confirmed Levothyroxine Sodium [Synthroid] 25 mcg PO DAILY 12/07/13 12/24/20 Benazepril HCl [Lotensin] 20 mg PO QAM 02/05/16 12/24/20 Aspirin [Adult Low Dose Aspirin EC] 81 mg PO DAILY 09/18/17 12/24/20 Omeprazole [PriLOSEC] 20 mg PO AC-BRKFST 04/13/18 12/24/20 Albuterol Sulfate [Ventolin HFA] 2 puff INHALATION RT-Q4H PRN 09/22/19 12/24/20 Fluticasone Nasal [place] [Flonase 2 spr EA NOSTRIL BID PRN 09/22/19 12/24/20 Nasal [place]] Latanoprost/Pf [Latanoprost 0.005% 1 drop BOTH EYES HS 05/09/20 12/24/20 Eye Drop] Cholecalciferol [Vitamin D3 (25 50 mcg PO DAILY 12/20/20 12/24/20 Mcg = 1000 Iu)] Ibuprofen [Motrin] 600 mg PO Q8HR PRN 12/20/20 12/24/20 Previous Rx's Medication Instructions Recorded Acetaminophen Tab [Tylenol] 650 mg PO Q6H #30 tab 12/24/20 Docusate [Colace] 100 mg PO BID #20 capsule 12/24/20 Ibuprofen [Motrin] 600 mg PO Q6HR PRN #40 tab 12/24/20 oxyCODONE HCL [OxyIR] 5 mg PO Q6H PRN 3 Days #10 tab 12/24/20 Allergies Allergy/AdvReac Type Severity Reaction Status Date / Time No Known Allergies Allergy Verified 01/13/21 00:01 Review of Systems ROS Statement: Those systems with pertinent positive or pertinent negative responses have been documented in the HPI. ROS Other: All systems not noted in ROS Statement are negative. Past Medical History Past Medical History: COPD, GERD/Reflux, Hypertension, Osteoarthritis (OA), Thyroid Disorder Additional Past Medical History / Comment(s): incisional hernia, varicose veins, History of Any Multi-Drug Resistant Organisms: None Reported Past Surgical History: Cholecystectomy, Hernia Repair, Joint Replacement Additional Past Surgical History / Comment(s): left knee replacement, rt shoulder surgery, kaleb cataracts Past Anesthesia/Blood Transfusion Reactions: No Reported Reaction Past Psychological History: No Psychological Hx Reported Smoking Status: Former smoker Past Alcohol Use History: None Reported Past Drug Use History: None Reported - Past Family History Mother Family Medical History: Cancer Father Family Medical History: Cancer Daughter(s) Family Medical History: Cancer Additional Family Medical History / Comment(s): liver and kidney General Exam - General Exam Comments Initial Comments: GENERAL: Patient is well-developed and well-nourished. Patient is nontoxic and in no acute distress. HEAD: Atraumatic, normocephalic. EYES: Pupils equal round and reactive to light, extraocular movements intact, sclera anicteric, conjunctiva are normal. Eyelids were unremarkable. ENT: TMs normal, nares patent, oropharynx clear without exudates. Moist mucous membranes. Patient has a small 0.5 cm cyst on the upper left lip, inside. There is some bleeding at this time. NECK: Normal range of motion, supple without lymphadenopathy or JVD. LUNGS: Unlabored respirations. Breath sounds clear to auscultation bilaterally and equal. No wheezes rales or rhonchi. HEART: Regular rate and rhythm without murmurs, rubs or gallops. ABDOMEN: Soft, nontender, normoactive bowel sounds. No guarding, no rebound. No masses appreciated. : Deferred MUSCULOSKELETAL: Normal extremities with adequate strength and normal range of motion, no pitting or edema. No clubbing or cyanosis. NEUROLOGICAL: Patient is alert and oriented x 3. SKIN: Warm, Dry, normal turgor, no rashes or lesions noted. Limitations: no limitations Course Vital Signs 01/12/21 23:56 Temperature 97.8 F Pulse Rate 80 Respiratory 20 Rate Blood Pressure 143/83 O2 Sat by Pulse 98 Oximetry Medical Decision Making - Medical Decision Making Patient is a 75-year-old male here with a small cyst on the inside portion of his upper lip on the left side. He developed a blister in this area after a recent surgery. He was having uncontrolled bleeding so came in for evaluation. Pressure was applied to the wound for approximately 10 minutes, there is no ac tive bleeding. Patient was observed in the ER for approximately one hour, there is no active bleeding. I discussed with patient that if bleeding starts up again, apply pressure, calcitriol ice to the area. I recommend following up with his doctor. He is agreeable to this and is stable for discharge. Case discussed with Dr. Lim. Disposition Clinical Impression: Mucous cyst of upper lip Disposition: HOME SELF-CARE Condition: Stable Instructions (If sedation given, give patient instructions): Normal Exam (ED) Additional Instructions: Please return to the Emergency Department if symptoms worsen or any other concerns. Apply pressure with bandage if bleeding restarts, as well as ice. Follow-up with your doctor. Is patient prescribed a controlled substance at d/c from ED?: No Referrals: Cali Guerra MD [Primary Care Provider] - 1-2 days Miky Rivera MD [STAFF PHYSICIAN] - 1-2 days Time of Disposition: 01:06
== END 2021-01-13 01:17 | disposition home or self-care (01) ==
LOC: EC 23:56
DX: S00.521A Blister (nonthermal) of lip, initial encounter (principal); K09.9 Cyst of oral region, unspecified; J44.9 Chronic obstructive pulmonary disease, unspecified; K21.9 Gastro-esophageal reflux disease without esophagitis; I10 Essential (primary) hypertension; M19.90 Unspecified osteoarthritis, unspecified site; E07.9 Disorder of thyroid, unspecified; Z79.82 Long term (current) use of aspirin; Z90.49 Acquired absence of other specified parts of digestive tract; Z96.652 Presence of left artificial knee joint; Z87.891 Personal history of nicotine dependence; Y83.9 Surgical procedure, unspecified as the cause of abnormal reaction of the patient, or of later complication, without mention of misadventure at the time of the procedure
CPT/HCPCS: 99282

== ENCOUNTER → 2021-04-10 | Outpatient (CLI) | payer MEDICARE ==
[2021-04-10 09:17] LABS: African American GFR (CKD) >90 (>60 ml/min/1.73 sqM); Blood Urea Nitrogen 16 mg/dL (9-20); Non-African American GFR(CKD) 79 (>60 ml/min/1.73 sqM)
--- NOTE | 2021-04-10 12:48 | CT ---
EXAMINATION TYPE: CT chest w con DATE OF EXAM: 04/10/2021 COMPARISON: None HISTORY: Enolarged lymph nodes CT DLP: 588 mGycm Automated exposure control for dose reduction was used. TECHNIQUE: CT scan of the chest is performed with IV Contrast, patient injected with 100 ml mL of Isovue 300. M IP Images are created on CT scanner and reviewed. 3D reconstructed images are created on an [employer] workstation and reviewed. FINDINGS: LUNGS: The lungs are grossly clear, there is no concerning parenchymal mass or nodule identified. T here is no pleural effusion or pneumothorax seen. The tracheobronchial tree is patent. Emphysematous changes noted. MEDIASTINUM: There are no greater than 1 cm hilar or mediastinal lymph nodes. No pericardial effusi on is seen. Atherosclerotic change aorta and coronary arteries with no evidence of aortic aneurysm. OTHER: Hypertrophic and degenerative change of the spine. Low-attenuation within the liver suggestiv e of hepatic steatosis and there is a 1.5 cm right adrenal nodule too small to characterize. Retrospe ctively stable from 2013 CT abdomen and therefore likely related to adenoma. Hepatic dome lesion note d on previous CT scan appears to be present but is less well seen on today's exam relative to 2013. Post surgical change right shoulder. IMPRESSION: 1. No acute intrathoracic process. No pathologic adenopathy. 2. COPD. 3. Hepatic steatosis. Decreasing noted hepatic lesions are less well-seen on today's exam likely rela naz to the phase of imaging. 4. Adrenal adenoma stable.
== END | disposition home or self-care (01) ==
LOC: RADCTMAIN 08:20
PROVIDERS: ATTEND Family Medicine
DX: J44.9 Chronic obstructive pulmonary disease, unspecified (principal); K76.0 Fatty (change of) liver, not elsewhere classified; D35.00 Benign neoplasm of unspecified adrenal gland
CPT/HCPCS: 82565; 84520; 71260; 36415; Q9967

== ENCOUNTER 2021-06-12 12:07 | Emergency (ER) | payer MEDICARE ==
[2021-06-12 12:14] VITALS: TEMP 99.1
--- NOTE | 2021-06-12 12:45 | ED ---
General Adult HPI - General Chief complaint: Recheck/Abnormal Lab/Rx Stated complaint: Abnormal Labs Time Seen by Provider: 06/12/21 12:15 Source: patient, RN notes reviewed, old records reviewed Mode of arrival: ambulatory Limitations: no limitations - History of Present Illness Initial comments: 75-year-old male presenting for abnormal outpatient laboratory testing. Patient had received basic blood work yesterday for elevated white blood cell count. The primary care physician and contacted the patient today who did report some chills and abdominal pain. He states that the abdominal pain is been present for several weeks on and off. He states he has had chills. His symptoms are essentially nonexistent at the time my evaluation. He denies dysuria. Denies urinary frequency. Denies significant cough or dyspnea. No chest pain. No measured fever. - Related Data Home Medications Medication Instructions Recorded Confirmed Levothyroxine Sodium [Synthroid] 25 mcg PO DAILY 12/07/13 12/24/20 Benazepril HCl [Lotensin] 20 mg PO QAM 02/05/16 12/24/20 Aspirin [Adult Low Dose Aspirin EC] 81 mg PO DAILY 09/18/17 12/24/20 Omeprazole [PriLOSEC] 20 mg PO AC-BRKFST 04/13/18 12/24/20 Albuterol Sulfate [Ventolin HFA] 2 puff INHALATION RT-Q4H PRN 09/22/19 12/24/20 Fluticasone Nasal [place] [Flonase 2 spr EA NOSTRIL BID PRN 09/22/19 12/24/20 Nasal [place]] Latanoprost/Pf [Latanoprost 0.005% 1 drop BOTH EYES HS 05/09/20 12/24/20 Eye Drop] Cholecalciferol [Vitamin D3 (25 50 mcg PO DAILY 12/20/20 12/24/20 Mcg = 1000 Iu)] Ibuprofen [Motrin] 600 mg PO Q8HR PRN 12/20/20 12/24/20 Previous Rx's Medication Instructions Recorded Acetaminophen Tab [Tylenol] 650 mg PO Q6H #30 tab 12/24/20 Docusate [Colace] 100 mg PO BID #20 capsule 12/24/20 Ibuprofen [Motrin] 600 mg PO Q6HR PRN #40 tab 12/24/20 oxyCODONE HCL [OxyIR] 5 mg PO Q6H PRN 3 Days #10 tab 12/24/20 Amoxicillin/Potassium Clav 1 tab PO BID 10 Days #20 tab 06/12/21 [Augmentin 875-125 Tablet] Azithromycin [Zithromax Z-pack] 0 mg PO DIRECTED #6 tab 06/12/21 Allergies Allergy/AdvReac Type Severity Reaction Status Date / Time No Known Allergies Allergy Verified 06/12/21 12:11 Review of Systems ROS Statement: Those systems with pertinent positive or pertinent negative responses have been documented in the HPI. ROS Other: All systems not noted in ROS Statement are negative. Past Medical History Past Medical History: COPD, GERD/Reflux, Hypertension, Osteoarthritis (OA), Thyroid Disorder Additional Past Medical History / Comment(s): incisional hernia, varicose veins, History of Any Multi-Drug Resistant Organisms: None Reported Past Surgical History: Cholecystectomy, Hernia Repair, Joint Replacement Additional Past Surgical History / Comment(s): left knee replacement, rt shoulder surgery, kaleb cataracts Past Anesthesia/Blood Transfusion Reactions: No Reported Reaction Past Psychological History: No Psychological Hx Reported Smoking Status: Former smoker Past Alcohol Use History: None Reported Past Drug Use History: None Reported - Past Family History Mother Family Medical History: Cancer Father Family Medical History: Cancer Daughter(s) Family Medical History: Cancer Additional Family Medical History / Comment(s): liver and kidney General Exam Limitations: no limitations General appearance: alert, in no apparent distress Head exam: Present: atraumatic, normocephalic Eye exam: Present: normal appearance, PERRL ENT exam: Present: normal exam Neck exam: Present: normal inspection. Absent: tenderness, meningismus Respiratory exam: Present: normal lung sounds bilaterally. Absent: respiratory distress, wheezes Cardiovascular Exam: Present: regular rate, normal rhythm GI/Abdominal exam: Present: soft. Absent: distended, tenderness, guarding Extremities exam: Present: normal inspection, normal capillary refill. Absent: pedal edema Neurological exam: Present: alert, oriented X3, CN II-XII intact. Absent: motor sensory deficit Psychiatric exam: Present: normal affect, normal mood Skin exam: Present: warm, dry, intact. Absent: cyanosis, diaphoretic Course Vital Signs 06/12/21 12:11 Temperature 99.1 F Pulse Rate 87 Respiratory 16 Rate Blood Pressure 158/70 O2 Sat by Pulse 98 Oximetry Medical Decision Making - Medical Decision Making 75-year-old male who had presented for evaluation of elevated blood cell count.. The patient had complained of some abdominal pain but does not currently have any pain or tenderness. I did discuss case with linda ferro for Dr. Guerra who indicated that the patient reported chills and abdominal pain and with the elevated white blood cell count she did prefer workup. White blood cell count is down trending at 16.4. His coronavirus is negative he has a normal CMP. Chest x-ray does show concern for infiltrate and when reasked about upper respiratory symptoms he states she's had some nasal congestion and mild cough. CT of the abdomen does not show any acute infectious findings within the abdomen. He'll be started on antibiotics and will follow-up with the primary care physician for repeat blood draw and reevaluation. Return parameters discussed. - Lab Data Result diagrams: 06/12/21 12:50 06/12/21 12:50 Lab Results 06/12/21 06/12/21 06/12/21 Range/Units 12:50 12:50 12:50 WBC 16.4 H (3.8-10.6) k/uL RBC 4.41 (4.30-5.90) m/uL Hgb 14.8 (13.0-17.5) gm/dL Hct 44.3 (39.0-53.0) % MCV 100.3 H (80.0-100.0) fL MCH 33.6 (25.0-35.0) pg MCHC 33.5 (31.0-37.0) g/dL RDW 14.0 (11.5-15.5) % Plt Count 228 (150-450) k/uL MPV 7.1 Neutrophils % 86 % Lymphocytes % 6 % Monocytes % 7 % Eosinophils % 1 % Basophils % 0 % Neutrophils # 14.0 H (1.3-7.7) k/uL Lymphocytes # 1.0 (1.0-4.8) k/uL Monocytes # 1.1 H (0-1.0) k/uL Eosinophils # 0.1 (0-0.7) k/uL Basophils # 0.0 (0-0.2) k/uL Macrocytosis Slight Sodium 137 (137-145) mmol/L Potassium 3.8 (3.5-5.1) mmol/L Chloride 102 (98-107) mmol/L Carbon Dioxide 28 (22-30) mmol/L Anion Gap 7 mmol/L BUN 20 (9-20) mg/dL Creatinine 1.04 (0.66-1.25) mg/dL Est GFR (CKD-EPI)AfAm 82 (>60 ml/min/1.73 sqM) Est GFR (CKD-EPI)NonAf 71 (>60 ml/min/1.73 sqM) Glucose 99 (74-99) mg/dL Plasma Lactic Acid Antione 1.3 (0.7-2.0) mmol/L Calcium 9.5 (8.4-10.2) mg/dL Magnesium 1.6 (1.6-2.3) mg/dL Total Bilirubin 1.1 (0.2-1.3) mg/dL AST 20 (17-59) U/L ALT 17 (4-49) U/L Alkaline Phosphatase 56 (38-126) U/L Total Protein 7.3 (6.3-8.2) g/dL Albumin 3.9 (3.5-5.0) g/dL Coronavirus (PCR) (Not Detectd) 06/12/21 Range/Units 12:50 WBC (3.8-10.6) k/uL RBC (4.30-5.90) m/uL Hgb (13.0-17.5) gm/dL Hct (39.0-53.0) % MCV (80.0-100.0) fL MCH (25.0-35.0) pg MCHC (31.0-37.0) g/dL RDW (11.5-15.5) % Plt Count (150-450) k/uL MPV Neutrophils % % Lymphocytes % % Monocytes % % Eosinophils % % Basophils % % Neutrophils # (1.3-7.7) k/uL Lymphocytes # (1.0-4.8) k/uL Monocytes # (0-1.0) k/uL Eosinophils # (0-0.7) k/uL Basophils # (0-0.2) k/uL Macrocytosis Sodium (137-145) mmol/L Potassium (3.5-5.1) mmol/L Chloride (98-107) mmol/L Carbon Dioxide (22-30) mmol/L Anion Gap mmol/L BUN (9-20) mg/dL Creatinine (0.66-1.25) mg/dL Est GFR (CKD-EPI)AfAm (>60 ml/min/1.73 sqM) Est GFR (CKD-EPI)NonAf (>60 ml/min/1.73 sqM) Glucose (74-99) mg/dL Plasma Lactic Acid Antione (0.7-2.0) mmol/L Calcium (8.4-10.2) mg/dL Magnesium (1.6-2.3) mg/dL Total Bilirubin (0.2-1.3) mg/dL AST (17-59) U/L ALT (4-49) U/L Alkaline Phosphatase (38-126) U/L Total Protein (6.3-8.2) g/dL Albumin (3.5-5.0) g/dL Coronavirus (PCR) Not Detected (Not Detectd) Disposition Clinical Impression: Leukocytosis, PNA (pneumonia) Disposition: HOME SELF-CARE Condition: Good Instructions (If sedation given, give patient instructions): Leukocytosis (ED), Community Acquired Pneumonia (ED) Prescriptions: Amoxicillin/Potassium Clav [Augmentin 875-125 Tablet] 1 tab PO BID 10 Days #20 tab Azithromycin [Zithromax Z-pack] 0 mg PO DIRECTED #6 tab Is patient prescribed a controlled substance at d/c from ED?: No Referrals: Cali Guerra MD [Primary Care Provider] - 1-2 days Time of Disposition: 15:01
[2021-06-12 13:11] LABS: Albumin 3.9 g/dL (3.5-5.0); Calcium 9.5 mg/dL (8.4-10.2); Magnesium 1.6 mg/dL (1.6-2.3); Potassium 3.8 mmol/L (3.5-5.1); Total Bilirubin 1.1 mg/dL (0.2-1.3); Total Protein 7.3 g/dL (6.3-8.2)
[2021-06-12 13:37] LABS: Basophils % (A) 0 %; Eosinophils # (A) 0.1 k/uL (0-0.7); Eosinophils % (A) 1 %; HCT 44.3 % (39.0-53.0); HGB 14.8 gm/dL (13.0-17.5); Lymphocytes % (A) 6 %; MCH 33.6 pg (25.0-35.0); MCHC 33.5 g/dL (31.0-37.0); MCV 100.3 fL (80.0-100.0); Macrocytosis Slight; Mean Platelet Volume 7.1; Monocytes # (A) 1.1 k/uL (0-1.0); Monocytes % (A) 7 %; Neutrophils % (A) 86 %; Platelet Count 228 k/uL (150-450); RBC 4.41 m/uL (4.30-5.90); WBC 16.4 k/uL (3.8-10.6)
--- NOTE | 2021-06-12 14:04 | XR ---
EXAMINATION TYPE: XR chest 2V DATE OF EXAM: 06/12/2021 COMPARISON: Chest x-ray April 26, 2019. CT chest April 10, 2021. HISTORY: Fever and chills. Raúl kocytosis. TECHNIQUE: Frontal and lateral views of the chest are obtained. FINDINGS: There is background chronic emphysematous change redemonstrated with increased opacity in the right upper lobe noted. The cardiac silhouette size remains within normal limits. Surgical olson e to the right shoulder is redemonstrated IMPRESSION: Chronic emphysematous change with new right upper lobe acute infiltrate felt present.
--- NOTE | 2021-06-12 14:19 | CT ---
EXAMINATION TYPE: CT abdomen pelvis w con DATE OF EXAM: 06/12/2021 COMPARISON: CT abdomen and pelvis April 18, 2020 and older studies. HISTORY: Fever and right sided pain CT DLP: 943.2 mGycm, Automated Exposure Control for Dose Reduction was Utilized. CONTRAST: CT scan of the abdomen and pelvis is performed with oral and with IV Contrast, patient injected with 100 mL of Isovue 300. FINDINGS: LUNG BASES: Background mild chronic emphysematous change in the lower lungs with new subcentimeter sp iculated opacities in the right lung axial image 1. LIVER/GB: Persistent heterogeneous 2.6 cm hypodense mass in the anterior hepatic dome axial image 13 has dynamic MRI imaging characteristics consistent with benign hemangioma on 2013 MRI is redemonstrat ed. Interval cholecystectomy clips noted. PANCREAS: No significant abnormality is seen. SPLEEN: No significant abnormality is seen. ADRENALS: Slight thickening and small nodularity right greater than left bilateral adrenal glands unc hanged from 2013 CT consistent with benign etiology. KIDNEYS: Hyperdense focus suspicious for a 4 mm nonobstructing calculus in the left kidney anteriorly midpole level axial image 35. Symmetric cortical medullary uptake and excretion without hydronephros is seen bilaterally. BOWEL: Redundant sigmoid colon. Scattered colonic diverticula. No CT evidence for acute diverticuliti s. No suspicious small or large bowel dilatation. Poor distention of the sigmoid rectal colon similar to prior with increased retroperitoneal fat at this level and superiorly redemonstrated. PROSTATE/SEMINAL VESICLES: Central calcifications and normal sized prostate redemonstrated. Adjacent scattered pelvic phleboliths again seen.. LYMPH NODES: No greater than 1cm abdominal or pelvic lymph nodes are appreciated. OSSEOUS STRUCTURES: Moderate to severe disc space narrowing at L3-L4 level with moderate spurring is redemonstrated. OTHER: Moderate to severe peripheral plaque of the aorta extends into branch vessels. Significant zurdo nosis in the SMA is likely present but not significantly changed from most recent prior. IMPRESSION: 1. There are 2 new small subcentimeter foci of increased spiculated opacity could reflect developing multifocal multilobar infectious process or pneumonia in the right lung. Correlate clinically. 2. Retroperitoneal lipomatosis redemonstrated. No bowel obstruction. Chronic significant SMA stenosis .
[2021-06-12 15:27] LABS: Appearance,Urine Clear (Clear); Bilirubin,Urine Negative (Negative); Blood,Urine Negative (Negative); Color,Urine Yellow; Glucose,Urine (UA) Negative (Negative); Ketones,Urine Negative (Negative); Leukocyte Esterase,Urine Negative (Negative); Mucus,Urine Rare /hpf; Nitrite,Urine Negative (Negative); Protein,Urine 1+ (Negative); RBC,Urine <1 /hpf (0-5); Specific Gravity,Urine 1.023 (1.001-1.035); Squamous Epithelial Cell,Urine <1 /hpf (0-4); Urobilinogen,Urine <2.0 mg/dL (<2.0); WBC,Urine 2 /hpf (0-5)
[2021-06-12 15:43] VITALS: BP 155/89; PULSE 78; RESP 18
== END 2021-06-12 15:15 | disposition home or self-care (01) ==
LOC: EC 12:07
DX: D72.829 Elevated white blood cell count, unspecified (principal); J18.9 Pneumonia, unspecified organism; J44.9 Chronic obstructive pulmonary disease, unspecified; I10 Essential (primary) hypertension; M19.90 Unspecified osteoarthritis, unspecified site; K21.9 Gastro-esophageal reflux disease without esophagitis; Z87.891 Personal history of nicotine dependence; Z79.51 Long term (current) use of inhaled steroids
CPT/HCPCS: 36415; 80053; 83605; 83735; 85025; 81001; 87635; 71046; 74177; 99284; Q9967

== ENCOUNTER → 2021-07-05 | Outpatient (CLI) | payer MEDICARE ==
--- NOTE | 2021-07-05 12:50 | CT ---
EXAMINATION TYPE: CT adrenal glands wo/w con DATE OF EXAM: 07/05/2021 COMPARISON: 06/12/2021 HISTORY: 75-year-old male E27.8, disorder of adrenal gland, Recheck adrenal hyperplasia TECHNIQUE: Contiguous axial scanning of the abdomen performed without and with IV Contrast, patient i njected with 100 ml mL of Isovue 300. Long delayed images through the kidneys were obtained. Coronal/ sagittal reconstructions performed. CT DLP: 978 mGycm Automated exposure control for dose reduction was used. FINDINGS: Heart normal size without pericardial effusion. There is streaky atelectasis in the lower lungs. No p leural effusion. Stable 2.7 cm hypodense area along the anterior mid liver with some overlying volume loss. Possibly s ome focal scarring/fibrosis. Portal venous system is patent. Cholecystectomy clips. No biliary ductal dilatation. Redemonstrated 1.6 cm low-density nodule of the right adrenal gland. On noncontrast images, attenuati on of 3.3 Hounsfield units compatible with a benign lipid rich adrenal adenoma. Stable slight 8 mm thickening left adrenal gland without discrete nodularity. Slightly atrophic left kidney. Mild bilateral perinephric edema likely senescent change or chronic ki dney disease. Spleen with tiny inferior splenule, pancreas within normal limits. No dilated small bowel, free fluid, or free air. No mesenteric or retroperitoneal lymphadenopathy. Bpcp-dl-[id number] stool. Mild diverticular change along the transverse and left-sided colon. No rachel lonic inflammatory change. There is moderate atherosclerotic calcification throughout the abdominal aorta and visualized common iliac arteries. There appears to be severe stenosis at the origin of the celiac axis possibly severe at the origin pr oximal SMA and bilateral renal arteries as well. Bones: Moderate to advanced degenerative disc disease towards the right at L3-L4. IMPRESSION: 1. STABLE 1.6 CM LIPID RICH RIGHT ADRENAL ADENOMA. STABLE SLIGHT 8MM THICKENING LEFT ADRENAL GLAND, P OSSIBLY UNDERLYING ADRENAL HYPERPLASIA. 2. THERE APPEAR TO BE SEVERE ATHEROSCLEROTIC STENOSES AT THE ORIGIN OF THE CELIAC AXIS, SMA, AND BILA TERAL RENAL ARTERIES. CLINICALLY CORRELATE. 3. MILD TO MODERATE STOOL BURDEN WITH COLONIC DIVERTICULOSIS. NO ACUTE DIVERTICULITIS..
== END | disposition home or self-care (01) ==
LOC: RADCTMAIN 09:48
PROVIDERS: ATTEND Family Medicine
DX: D35.01 Benign neoplasm of right adrenal gland (principal); E27.8 Other specified disorders of adrenal gland; K57.30 Diverticulosis of large intestine without perforation or abscess without bleeding; I70.8 Atherosclerosis of other arteries; I70.1 Atherosclerosis of renal artery
CPT/HCPCS: 82565; 84520; 36415; 74170; Q9967

== ENCOUNTER → 2022-03-24 | Outpatient (CLI) | payer MEDICARE ==
--- NOTE | 2022-03-24 12:31 | US ---
EXAMINATION TYPE: US thyroid st tissue head/neck DATE OF EXAM: 03/24/2022 COMPARISON: 02/21/2020, 09/07/2020 CLINICAL HISTORY: E04.1 THYROID NODULE. GLAND SIZE: Right Lobe: 5.4 x 2.0 x 1.3 cm Overall Parenchyma: homogenous Left Lobe: 5.4 x 2.0 x 1.2 cm Overall Parenchyma: homogeneous Isthmus Thickness: 0.31 cm NODULES RIGHT: # of nodules measured on right: 2 measured, multiple tiny cysts 1. 0.68 X 0.33 x 0.55 cm, upper mid, Prior size: 0.6 x 0.3 x 0.6 cm TIRADS Score: 0 TIRADS Category 1: Benign Composition: Cystic or almost completely cystic (0 points). Recommendation: No FNA 2. Stable 0.53 X 0.36 x 0.49 cm, upper medial. Prior size: 0.5 x 0.3 x 0.5 cm TIRADS Score: 4 TIRADS Category 4: Moderately Suspicious Composition: Solid or almost completely solid (2 points). Echogenicity: Hypoechoic (2 points). Shape: Wider than tall (0 points). Margin: Smooth (0 points). Echogenic foci: None or large comet-tail artifacts (0 points) Recommendation: If >1.5cm: FNA; If >1cm: Follow up at 1,3,5 years LEFT: # of nodules measured on left: 1 1. 1.1 X 1.0 x 0.77 cm, lower mid, Prior size: 1.0 x 1.0 x 1.0 cm TIRADS Score: 3 TIRADS Category 3: Mildly Suspicious Composition: Solid or almost completely solid (2 points). Echogenicity: Hyperechoic or isoechoic (1 point). Shape: Wider than tall (0 points). Margin: Smooth (0 points). Echogenic foci: None or large comet-tail artifacts (0 points) Recommendation: If >2.5cm: FNA; If >1.5cm: Follow up at 1,3,5 years ISTHMUS: # of nodules measured in the isthmus: 0 Bilateral neck scanned, no evidence of lymphadenopathy. IMPRESSION: 2017 ACR TI-RADS LEVEL: TR-RADS 4 - Moderately Suspicious: Follow if > 1 cm, FNA if > 1.5 cm *Highest TI-RADS level nodule reported
== END | disposition home or self-care (01) ==
LOC: RADUSWWP 08:24
PROVIDERS: ATTEND Otolaryngology
DX: E04.1 Nontoxic single thyroid nodule (principal)
CPT/HCPCS: 76536

== ENCOUNTER 2022-04-17 07:13 | Day surgery (SDC) | payer MEDICARE ==
[2022-04-15 11:49] VITALS: BMI 25.1
[~2022-04-17 07:13] MED LIST changes: -ACETAMINOPHEN TAB 500 MG TAB PO PRN; +DEXAMETHASONE SOD PHOSPHATE 4 MG/ML 1 ML VIAL IV PRN; +FAMOTIDINE 20 MG/2 ML VIAL IV PRN; -HEPARIN SODIUM,PORCINE/PF 5,000 UNIT/0.5 ML SYRINGE SQ PRN; -LIDOCAINE 1% (10MG/ML) FOR IV START INTRADERMA PRN; -MIDAZOLAM 2 MG/2 ML VIAL IV PRN; -fentaNYL (PF) 50 MCG/ML 2 ML AMP IVP PRN
[2022-04-17 07:47] VITALS: RESP 16; TEMP 97.1
[2022-04-17] MEDS ORDERED: GLYCOPYRROLATE 0.2 MG/ML 2 ML VIAL ONE (08:35)
[2022-04-17] MEDS ORDERED: PROPOFOL 10 MG/ML 20 ML VIAL IV ONE (08:35)
[2022-04-17] MEDS ORDERED: SUCCINYLCHOLINE CHLORIDE 200 MG/10 ML VIAL IV ONE (08:35)
[2022-04-17] MEDS ORDERED: NEOSTIGMINE 1 MG/ML 10 ML VIAL ONE (08:35)
[2022-04-17] MEDS ORDERED: LIDOCAINE 2% INJ 20 MG/ML (2 ML VIAL) ONE (08:35)
[2022-04-17] MEDS ORDERED: fentaNYL (PF) 50 MCG/ML 2 ML AMP ONE (08:35)
[2022-04-17] MEDS ORDERED: ROCURONIUM 10 MG/ML (5 ML VIAL) IV ONE (08:35)
[2022-04-17] MEDS ORDERED: MIDAZOLAM 2 MG/2 ML VIAL ONE (08:35)
--- NOTE | 2022-04-17 09:24 | P.OP ---
Date of Procedure: 04/17/22 Preoperative Diagnosis: 3 cm left hypopharyngeal mass suspicious Postoperative Diagnosis: Same Procedure(s) Performed: Direct microscopic laryngoscopy with removal of left hypopharyngeal mass Anesthesia: NIDIAA Surgeon: Marquez Montanez Estimated Blood Loss (ml): 5 Pathology: other (Left hypopharyngeal mass) Condition: stable Disposition: PACU Indications for Procedure: This patient was found to have a left hypopharyngeal mass after originally presenting with left ear pain. Examination the office demonstrates a suspicious mass and CAT scan did confirm a mass in the left hypopharynx. Patient's here today for removal and biopsy. Operative Findings: Patient is a left hypopharyngeal mass extending from the upper portion the piriform sinus along the lateral hypopharynx measured approximate 3 cm x 2 cm Description of Procedure: Patient was taken to the operative room and placed in the supine position. A general inhalation anesthetic was administered to the patient by mask and subsequently intubated with a cuffed endotracheal tube by the department of anesthesia with a functioning IV line in place. Patient was monitored throughout the entire case by the department of anesthesia. Tooth guard was placed and a Jako laryngoscope is placed into the patient's mouth with care to avoid any trauma to the lips teeth gums and tongue. The entire oropharynx and hypopharynx or laryngeal region postcricoid space vallecula epiglottis true and false cords ventricle etc. etc. was examined endoscopically. We utilized a 400 mm Zeiss microscope for examination placed on suspension and a mass was noted the left hypopharynx was approximately 3 cm high in 2 cm wide extending from the superior portion of the left piriform sinus superiorly to be adjacent with the upper portion of the endolarynx. This did not appear to be attached to the larynx was just attached to the lateral pharyngeal and posterior pharyngeal mucosa. We removed what we could with biopsy forceps. This was sent for pathology. Patient tolerated this well and follow-up will be in the office in 1 week.
[2022-04-17] MEDS ORDERED: hydrALAZINE HCL 20 MG/ML 1 ML VIAL IVP ONE (09:37)
[2022-04-17 10:56] VITALS: BP 169/93; PULSE 59
== END 2022-04-17 11:00 | disposition home or self-care (01) ==
LOC: OR 07:13
PROVIDERS: ATTEND Otolaryngology
DX: J39.2 Other diseases of pharynx (principal); H92.02 Otalgia, left ear; K21.9 Gastro-esophageal reflux disease without esophagitis; I10 Essential (primary) hypertension; Z96.60 Presence of unspecified orthopedic joint implant; Z98.890 Other specified postprocedural states; Z79.82 Long term (current) use of aspirin; Z79.899 Other long term (current) drug therapy; D49.0 Neoplasm of unspecified behavior of digestive system
CPT/HCPCS: 31541; J2250; J0330; J0360; J1100; J2710; J0690; J2405; J3010; J2704; J2001; 88305; 88341; 88342

== ENCOUNTER → 2022-08-28 | Outpatient (CLI) | payer MEDICARE ==
--- NOTE | 2022-08-28 13:06 | CA ---
Transthoracic Echo Report Name: Yousuf Robin Age: 76 Gender: M : 1945 Exam Date: 08/28/2022 11:12 Exam Location: [facility] Ht (in): 71 Wt (lb): 162 Ordering Physician: Cali Guerra MD Attending/Referring Phys: Cali Guerra MD [employer] Lizette Ochoa [facility] Procedure CPT: Indications: I27.20 pulmonary HTN Cardiac Hx: Technical Quality: Good Contrast 1: Total Dose (mL): Contrast 2: Total Dose (mL): MEASUREMENTS (Male / Female) Normal Values 2D ECHO LV Diastolic Diameter PLAX 4.7 cm 4.2 - 5.9 / 3.9 - 5.3 cm LV Systolic Diameter PLAX 3.2 cm IVS Diastolic Thickness 1.3 cm 0.6 - 1.0 / 0.6 - 0.9 cm LVPW Diastolic Thickness 1.2 cm 0.6 - 1.0 / 0.6 - 0.9 cm LV Relative Wall Thickness 0.5 RV Internal Dim ED PLAX 3.5 cm LA Systolic Diameter LX 3.8 cm 3.0 - 4.0 / 2.7 - 3.8 cm LV Diastolic Volume MOD BP 59.6 cm??? 67 - 155 / 56 - 104 cm??? LV Systolic Volume MOD BP 25.1 cm??? 22 - 58 / 19 - 49 cm??? LV Ejection Fraction MOD BP 57.9 % >= 55 % LV Diastolic Volume MOD 4C 50.2 cm??? LV Systolic Volume MOD 4C 17.7 cm??? LV Ejection Fraction MOD 4C 64.8 % LV Diastolic Length 4C 6.8 cm LV Systolic Length 4C 6.3 cm LV Diastolic Volume MOD 2C 71.3 cm??? LV Systolic Volume MOD 2C 34.0 cm??? LV Ejection Fraction MOD 2C 52.4 % LV Diastolic Length 2C 6.7 cm LV Systolic Length 2C 5.9 cm LA Volume 55.0 cm??? 18 - 58 / 22 - 52 cm??? M-MODE Aortic Root Diameter MM 3.1 cm MV E Point Septal Separation 1.0 cm AV Cusp Separation MM 2.1 cm DOPPLER AV Peak Velocity 125.1 cm/s AV Peak Gradient 6.3 mmHg MV Area PHT 3.1 cm??? Mitral E Point Velocity 104.4 cm/s Mitral A Point Velocity 100.4 cm/s Mitral E to A Ratio 1.0 MV Deceleration Time 246.6 ms MV E' Velocity 5.6 cm/s Mitral E to MV E' Ratio 18.7 TR Peak Velocity 272.8 cm/s TR Peak Gradient 29.8 mmHg Right Ventricular Systolic Press 40.0 mmHg FINDINGS Left Ventricle Left ventricular ejection fraction is estimated at 55-60 %. Left ventricular cavity size normal. Mild concentric left ventricular hypertrophy. Normal left ventricular wall motion. Right Ventricle Mild right ventricular dilatation. Mild pulmonary hypertension. Right ventricular systolic pressure estimated at 40 mm hg. Right Atrium Normal right atrial size. Left Atrium Normal left atrial size. Mitral Valve Mitral valve thickened. Trace to mild mitral regurgitation. Aortic Valve Trileaflet aortic valve. No aortic valve stenosis or regurgitation. Tricuspid Valve Tricuspid valve not well visualized. Mild tricuspid regurgitation. Pulmonic Valve Structurally normal pulmonic valve. Trace pulmonic regurgitation. Pericardium Normal pericardium. No pericardial effusion. Aorta Normal size aortic root and proximal ascending aorta. CONCLUSIONS Left ventricular ejection fraction 55-60% Mild LVH RVSP 40 Trace to mild mitral regurgitation Mild tricuspid regurgitation No pericardial effusion Previewed by: Dr. Sandeep Manzo DO (Electronically Signed) Final Date: 28 August 2022 13:05
--- NOTE | 2022-08-28 14:53 | CT ---
EXAMINATION TYPE: CT adrenal glands wo/w con DATE OF EXAM: 08/28/2022 COMPARISON: 07/05/2021 INDICATION: adrenal hyperplasia DLP: 1241 mGycm, Automated exposure control for dose reduction was used. CONTRAST: 100 mL of Isovue 300. Study performed TECHNIQUE: Axial images were obtained from above the diaphragm to the pubic rami in the axial plane a t 5 mm thick sections. Reconstructed images are reviewed on the computer in the coronal plane. FINDINGS: Limited CT sections are obtained the lung bases. Mild infiltrate is along the right as ago esophagea l recess. Correlate for atelectasis. Early pneumonia could be considered.. CT ABDOMEN: Liver: Normal head cyst is evident on postcontrast imaging. Spleen: Normal Pancreas: Normal Adrenal glands: There is mild thickening of the right adrenal gland measuring 1.1 cm. This has Hounsf ield unit measurement of 11.5 on precontrast imaging. Following contrast administration density measu res 53 Hounsfield units. On 15 minute delayed images this has Hounsfield unit measurement of 19. Abso lute washout is 83% and relative washout is 64%. These values are consistent with adenoma. Left adrenal gland appears normal. Gallbladder: Not visualized. Kidneys: No masses are evident. No hydronephrosis is present. No cysts are present. No renal calci fications evident. Some vascular calcifications within the left kidney. Aorta: Vascular calcification is within the aorta. Inferior vena cava: Normal. Bowel: Loops of bowel distended with oral contrast. Normal. There are some fluid-filled small bowel l oops. Colon contains fecal debris. IMPRESSIONS: 1. Small 1.1 cm right adrenal density on dynamic scanning appears consistent with an adenoma.
== END | disposition home or self-care (01) ==
LOC: RADCTMAIN 09:40
PROVIDERS: ATTEND Family Medicine
DX: I36.1 Nonrheumatic tricuspid (valve) insufficiency (principal); I34.0 Nonrheumatic mitral (valve) insufficiency; I27.20 Pulmonary hypertension, unspecified; E27.8 Other specified disorders of adrenal gland; I51.7 Cardiomegaly
CPT/HCPCS: 93306; 82565; 84520; 74170; Q9967

== ENCOUNTER 2022-10-24 13:46 | Observation (INO) | payer MEDICARE ==
[2022-10-24] MEDS ORDERED: ONDANSETRON 4 MG/2 ML VIAL IVP STA (16:22)
[2022-10-24] MEDS ORDERED: KETOROLAC 15 MG/ML 1 ML VIAL IVP STA (16:29)
--- NOTE | 2022-10-24 16:38 | ED ---
General Adult HPI - General Chief complaint: Abdominal Pain Stated complaint: Abd pain Time Seen by Provider: 10/24/22 16:09 Source: patient, RN notes reviewed Mode of arrival: ambulatory Limitations: no limitations - History of Present Illness Initial comments: 76-year-old male presents emergency department chief complaint of abdominal pain x4 days. He states that the pain is in the suprapubic area and radiates to the right flank. He states that the pain is sharp and 10/10 when it comes on. He reports nausea along with vomiting yesterday. No vomiting today. Denies dysuria, fever, chills. Denies chest pain, shortness of breath. He has an inci sional hernia in the epigastric region where his prior cholecystectomy incision was. Prior abdominal surgeries include cholecystectomy. Past medical history includes throat cancer for which he underwent radiation and states that "it is gone." - Related Data Home Medications Medication Instructions Recorded Confirmed Levothyroxine Sodium [Synthroid] 25 mcg PO DAILY 12/07/13 10/24/22 Omeprazole [PriLOSEC] 20 mg PO DAILY 04/13/18 10/24/22 Albuterol Sulfate [Ventolin HFA] 2 puff INHALATION RT-Q4H PRN 09/22/19 10/24/22 Latanoprost/Pf [Latanoprost 0.005% 1 drop BOTH EYES HS 05/09/20 10/24/22 Eye Drop] Cholecalciferol [Vitamin D3 (25 50 mcg PO DAILY 12/20/20 10/24/22 Mcg = 1000 Iu)] traMADol HCL 50 mg PO QID PRN 04/15/22 10/24/22 Atorvastatin [Lipitor] 20 mg PO DAILY 10/24/22 10/24/22 Azelastine HCl [Astelin Nasal 2 sprays EA NOSTRIL BID PRN 10/24/22 10/24/22 [place]] Benazepril HCl 20 mg PO DAILY 10/24/22 10/24/22 Fluticasone/Umeclidin/Vilanter 1 puff INHALATION RT-DAILY 10/24/22 10/24/22 [Trelegy Ellipta 100-62.5-25] Lidocaine Viscous 2% [Xylocaine 15 ml MUCOUS MEM Q3H PRN 10/24/22 10/24/22 Viscous] Allergies Allergy/AdvReac Type Severity Reaction Status Date / Time No Known Allergies Allergy Verified 10/24/22 21:24 Review of Systems ROS Statement: Those systems with pertinent positive or pertinent negative responses have been documented in the HPI. ROS Other: All systems not noted in ROS Statement are negative. Past Medical History Past Medical History: Cancer, COPD, GERD/Reflux, Hyperlipidemia, Hypertension, Osteoarthritis (OA), Thyroid Disorder Additional Past Medical History / Comment(s): incisional hernia, varicose veins, hx hiatal hernia, carpal tunnel-kaleb, throat cancer History of Any Multi-Drug Resistant Organisms: None Reported Past Surgical History: Cholecystectomy, Hernia Repair, Joint Replacement Additional Past Surgical History / Comment(s): left knee replacement, rt shoulder surgery, kaleb cataracts with lens implants Past Anesthesia/Blood Transfusion Reactions: No Reported Reaction Past Psychological History: No Psychological Hx Reported Smoking Status: Former smoker Past Alcohol Use History: Daily Past Drug Use History: None Reported - Past Family History Mother Family Medical History: Cancer Father Family Medical History: Cancer Daughter(s) Family Medical History: Cancer Additional Family Medical History / Comment(s): liver and kidney General Exam Limitations: no limitations General appearance: alert, in no apparent distress Head exam: Present: atraumatic, normocephalic, normal inspection Eye exam: Present: normal appearance, PERRL, EOMI ENT exam: Present: normal exam, mucous membranes dry, mucous membranes moist Neck exam: Present: normal inspection. Absent: tenderness, meningismus, lymphadenopathy Respiratory exam: Present: normal lung sounds bilaterally. Absent: respiratory distress, wheezes, rales, rhonchi, stridor Cardiovascular Exam: Present: regular rate, normal rhythm GI/Abdominal exam: Present: soft, tenderness (Mild tenderness to the umbilical region), normal bowel sounds. Absent: distended, guarding, rebound, rigid Extremities exam: Present: normal inspection, full ROM, normal capillary refill. Absent: tenderness, pedal edema, joint swelling, calf tenderness Back exam: Present: normal inspection Neurological exam: Present: alert, oriented X3 Psychiatric exam: Present: normal affect, normal mood Skin exam: Present: warm, dry, intact, normal color. Absent: rash Course Vital Signs 10/24/22 10/24/22 10/24/22 14:14 19:00 21:03 Temperature 98.1 F 98 F Pulse Rate 61 91 68 Respiratory 20 18 16 Rate Blood Pressure 117/66 134/61 120/80 O2 Sat by Pulse 95 96 97 Oximetry Medical Decision Making - Medical Decision Making Was pt. sent in by a medical professional or institution ([facility] Davey, HIV/AIDS CARE NURSE, urgent care, hospital, or [place] health care facility...) When possible be specific @ -No Did you speak to anyone other than the patient for history (EMS, parent, family, police, friend...)? What history was obtained from this source @ -No Did you review nursing and triage notes (agree or disagree)? Why? @ -I reviewed and agree with nursing and triage notes Were old charts reviewed (outside hosp., previous admission, EMS record, old EKG, old radiological studies, urgent care reports/EKG's, [place] health care facility records)? Report findings @ -Prior laboratory results were reviewed Differential Diagnosis (chest pain, altered mental status, abdominal pain women, abdominal pain men, vaginal bleeding, weakness, fever, dyspnea, syncope, headache, dizziness, GI bleed, back pain, seizure, CVA, palpatations, mental health, musculoskeletal)? @ -Differential Abdominal Pain Men: Appendicitis, cholecystitis, diverticulosis, ischemic bowel, pancreatitis, hepatitis, UTI, gastroenteritis, AAA, incarcerated hernia, bowel obstruction, constipation, inflammatory bowel, hepatitis, peptic ulcer disease, splenic infarction, perforated viscus, testicular torsion, this is not meant to be an all-inclusive list EKG interpreted by me (3pts min.). @ -none X-rays interpreted by me (1pt min.). @ -None done CT interpreted by me (1pt min.). @ -Acute abdomen and pelvis without contrast was obtained which showed no evidence for acute process U/S interpreted by me (1pt. min.). @ -Ultrasound kidney and bladder showed no evidence for hydronephrosis What testing was considered but not performed or refused? (CT, X-rays, U/S, labs)? Why? @ -CT with contrast was considered but was preformed without contrast because of his kidney function What meds were considered but not given or refused? Why? @ -None Did you discuss the management of the patient with other professionals (professionals i.e. ARPAN Davey, HIV/AIDS CARE NURSE, lab, RT, psych nurse, social media content manager, lumber buyer, teacher, security control room officer, outpatient case manager)? Give summary @ -case was discussed with Mona Nickerson NP who is accepting of the admission and requested a KUB ultrasound Was smoking cessation discussed for >3mins.? @ -No Was critical care preformed (if so, how long)? @ -No Were there social determinants of health that impacted care today? How? (Homelessness, low income, unemployed, alcoholism, drug addiction, transportation, low edu. Level, literacy, decrease access to med. care, custodial, rehab)? @ -No Was there de-escalation of care discussed even if they declined (Discuss DNR or withdrawal of care, Hospice)? DNR status @ -No What co-morbidities impacted this encounter? (DM, HTN, Smoking, COPD, CAD, Cancer, CVA, ARF, Chemo, Hep., AIDS, mental health diagnosis, sleep apnea, morbid obesity)? @ -None Was patient admitted / discharged? Hospital course, mention meds given and route, prescriptions, significant lab abnormalities, going to OR and other pertinent info. @ -Admitted. Patient presented to emergency department chief complaint of abdominal pain 4 days in the suprapubic and right flank regions. Patient was administered Toradol for pain and Zofran for nausea. Patient underwent laboratory studies which showed CBC within normal limits, CMP showed a creatinine 2.34, BUN 57, these findings are significantly different from his prior laboratory studies that were obtained on 10/07/22. Patient was administered 1L NS. CT abd, pelvis showed no evidence for acute finding. KUB ultrasound was performed which showed no evidence for hydronephrosis. Case was discussed with [facility] who is accepting of the admission. Patient stable at time of admission. Case discussed my attending, Dr. Lim Undiagnosed new problem with uncertain prognosis? @ -No Drug Therapy requiring intensive monitoring for toxicity (Heparin, Nitro, Insulin, Cardizem)? @ -No Were any procedures done? @ -No Diagnosis/symptom? @ -acute kidney injury Acute, or Chronic, or Acute on Chronic? @ -acute Uncomplicated (without systemic symptoms) or Complicated (systemic symptoms)? @ -uncomplicated Side effects of treatment? @ -No Exacerbation, Progression, or Severe Exacerbation? @ -No Poses a threat to life or bodily function? How? (Chest pain, USA, AR, pneumonia, PE, COPD, DKA, ARF, appy, cholecystitis, CVA, Diverticulitis, Homicidal, Suicidal, threat to staff... and all critical care pts) @ -yes, TATUM - Lab Data Result diagrams: 10/24/22 17:04 10/24/22 17:04 Lab Results 10/24/22 10/24/22 10/24/22 Range/Units 17:04 17:04 17:04 WBC 7.8 (3.8-10.6) k/uL RBC 4.59 (4.30-5.90) m/uL Hgb 14.3 (13.0-17.5) gm/dL Hct 44.2 (39.0-53.0) % MCV 96.3 (80.0-100.0) fL MCH 31.2 (25.0-35.0) pg MCHC 32.4 (31.0-37.0) g/dL RDW 13.9 (11.5-15.5) % Plt Count 213 (150-450) k/uL MPV 7.4 Neutrophils % 76 % Lymphocytes % 12 % Monocytes % 7 % Eosinophils % 3 % Basophils % 1 % Neutrophils # 5.9 (1.3-7.7) k/uL Lymphocytes # 0.9 L (1.0-4.8) k/uL Monocytes # 0.5 (0-1.0) k/uL Eosinophils # 0.2 (0-0.7) k/uL Basophils # 0.1 (0-0.2) k/uL Sodium 138 (137-145) mmol/L Potassium 4.9 (3.5-5.1) mmol/L Chloride 106 (98-107) mmol/L Carbon Dioxide 18 L (22-30) mmol/L Anion Gap 14 mmol/L BUN 57 H (9-20) mg/dL Creatinine 2.34 H (0.66-1.25) mg/dL Est GFR (CKD-EPI)AfAm 30 (>60 ml/min/1.73 sqM) Est GFR (CKD-EPI)NonAf 26 (>60 ml/min/1.73 sqM) Glucose 106 H (74-99) mg/dL Plasma Lactic Acid Antione (0.7-2.0) mmol/L Calcium 9.5 (8.4-10.2) mg/dL Total Bilirubin 0.5 (0.2-1.3) mg/dL AST 20 (17-59) U/L ALT 18 (4-49) U/L Alkaline Phosphatase 67 (38-126) U/L Total Protein 7.6 (6.3-8.2) g/dL Albumin 4.2 (3.5-5.0) g/dL Amylase 78 (30-110) U/L Lipase 121 (23-300) U/L Urine Color Yellow Urine Appearance Clear (Clear) Urine pH 5.5 (5.0-8.0) Ur Specific [place] 1.014 (1.001-1.035) Urine Protein Trace H (Negative) Urine Glucose (UA) Negative (Negative) Urine Ketones Negative (Negative) Urine Blood Negative (Negative) Urine Nitrite Negative (Negative) Urine Bilirubin Negative (Negative) Urine Urobilinogen <2.0 (<2.0) mg/dL Ur Leukocyte Esterase Negative (Negative) 10/24/22 Range/Units 17:04 WBC (3.8-10.6) k/uL RBC (4.30-5.90) m/uL Hgb (13.0-17.5) gm/dL Hct (39.0-53.0) % MCV (80.0-100.0) fL MCH (25.0-35.0) pg MCHC (31.0-37.0) g/dL RDW (11.5-15.5) % Plt Count (150-450) k/uL MPV Neutrophils % % Lymphocytes % % Monocytes % % Eosinophils % % Basophils % % Neutrophils # (1.3-7.7) k/uL Lymphocytes # (1.0-4.8) k/uL Monocytes # (0-1.0) k/uL Eosinophils # (0-0.7) k/uL Basophils # (0-0.2) k/uL Sodium (137-145) mmol/L Potassium (3.5-5.1) mmol/L Chloride (98-107) mmol/L Carbon Dioxide (22-30) mmol/L Anion Gap mmol/L BUN (9-20) mg/dL Creatinine (0.66-1.25) mg/dL Est GFR (CKD-EPI)AfAm (>60 ml/min/1.73 sqM) Est GFR (CKD-EPI)NonAf (>60 ml/min/1.73 sqM) Glucose (74-99) mg/dL Plasma Lactic Acid Antione 1.1 (0.7-2.0) mmol/L Calcium (8.4-10.2) mg/dL Total Bilirubin (0.2-1.3) mg/dL AST (17-59) U/L ALT (4-49) U/L Alkaline Phosphatase (38-126) U/L Total Protein (6.3-8.2) g/dL Albumin (3.5-5.0) g/dL Amylase (30-110) U/L Lipase (23-300) U/L Urine Color Urine Appearance (Clear) Urine pH (5.0-8.0) Ur Specific [place] (1.001-1.035) Urine Protein (Negative) Urine Glucose (UA) (Negative) Urine Ketones (Negative) Urine Blood (Negative) Urine Nitrite (Negative) Urine Bilirubin (Negative) Urine Urobilinogen (<2.0) mg/dL Ur Leukocyte Esterase (Negative) Disposition Clinical Impression: Acute kidney injury Disposition: ADMITTED IP TO THIS HOSP Condition: Stable Is patient prescribed a controlled substance at d/c from ED?: No
[2022-10-24 17:13] LABS: Basophils # (A) 0.1 k/uL (0-0.2); Basophils % (A) 1 %; Eosinophils # (A) 0.2 k/uL (0-0.7); Eosinophils % (A) 3 %; HCT 44.2 % (39.0-53.0); HGB 14.3 gm/dL (13.0-17.5); Lymphocytes # (A) 0.9 k/uL (1.0-4.8); Lymphocytes % (A) 12 %; MCH 31.2 pg (25.0-35.0); MCHC 32.4 g/dL (31.0-37.0); MCV 96.3 fL (80.0-100.0); Mean Platelet Volume 7.4; Monocytes # (A) 0.5 k/uL (0-1.0); Monocytes % (A) 7 %; Neutrophils # (A) 5.9 k/uL (1.3-7.7); Neutrophils % (A) 76 %; Platelet Count 213 k/uL (150-450); RBC 4.59 m/uL (4.30-5.90); RDW 13.9 % (11.5-15.5); WBC 7.8 k/uL (3.8-10.6)
[2022-10-24 17:30] LABS: Appearance,Urine Clear (Clear); Bilirubin,Urine Negative (Negative); Blood,Urine Negative (Negative); Color,Urine Yellow; Glucose,Urine (UA) Negative (Negative); Ketones,Urine Negative (Negative); Leukocyte Esterase,Urine Negative (Negative); Nitrite,Urine Negative (Negative); PH, Urine 5.5 (5.0-8.0); Protein,Urine Trace (Negative); Specific Gravity,Urine 1.014 (1.001-1.035); Urobilinogen,Urine <2.0 mg/dL (<2.0)
[2022-10-24 17:44] LABS: Albumin 4.2 g/dL (3.5-5.0); Calcium 9.5 mg/dL (8.4-10.2); Potassium 4.9 mmol/L (3.5-5.1); Total Bilirubin 0.5 mg/dL (0.2-1.3); Total Protein 7.6 g/dL (6.3-8.2)
[2022-10-24] MEDS ORDERED: SODIUM CHLORIDE 0.9% 1,000 ML IV ONE (17:48)
--- NOTE | 2022-10-24 18:53 | CT ---
EXAMINATION TYPE: CT abdomen pelvis wo con DATE OF EXAM: 10/24/2022 COMPARISON: 08/28/2022 INDICATION: Abdominal and back pain DLP: 459.7 mGycm, Automated exposure control for dose reduction was used. CONTRAST: 0 mL of Isovue 300. Study performed without Oral Contrast TECHNIQUE: Axial images were obtained from above the diaphragm to the pubic rami in the axial plane a t 5 mm thick sections. Reconstructed images are reviewed on the computer in the coronal plane. FINDINGS: Limited CT sections are obtained the lung bases. The lung bases are clear. CT ABDOMEN: Liver: Normal Spleen: Normal Pancreas: Normal Adrenal glands: Right adrenal gland is mildly thickened at 1 cm. Left adrenal appears normal. Gallbladder: Gallbladder is surgically absent. Kidneys: No masses are evident. No hydronephrosis is present. No cysts are present. No renal stone s are evident. Some vascular calcification is present on the left. Aorta: Vascular calcification is within the aorta. This extends into superior mesenteric artery and celiac axis. This continues into the common iliac vessels and internal and external iliac vessels. Inferior vena cava: Normal. CT PELVIS: Small bowel loops containing fluid within the pelvis. This study is without oral contrast limiting guadalupe wel evaluation. Fecal debris is within the ascending colon. Appendix: Not clearly identified. No dilated tubular structure or inflammatory changes are evident. Urinary bladder: Normal. Genitourinary structures: Prostate is prominent. Calcification is present. Osseous structures: No suspicious lytic or sclerotic lesions. IMPRESSIONS: 1. No suspicious acute changes identified CT abdomen and pelvis.
[2022-10-24] MEDS ORDERED: ACETAMINOPHEN TAB 325 MG TAB PO PRN (19:48)
[2022-10-24] MEDS ORDERED: NALOXONE 0.4 MG/ML 1 ML VIAL IV PRN (19:48)
[2022-10-24] MEDS ORDERED: ONDANSETRON 4 MG/2 ML VIAL IVP PRN (19:48)
[2022-10-24] MEDS ORDERED: HYDROcodone/APAP 5-325MG 1 EACH TAB PO PRN (19:48)
--- NOTE | 2022-10-24 20:55 | US ---
EXAMINATION TYPE: US kidneys/renal and bladder DATE OF EXAM: 10/24/2022 COMPARISON: Same day CT CLINICAL INDICATION: Male, 76 years old with history of flank pain; Pain EXAM MEASUREMENTS: Right Kidney: 12.1 x 5.4 x 5.4 cm Left Kidney: 8.7 x 4.3 x 3.6 cm No masses cysts or hydronephrosis. Urinary bladder is sonolucent. Posterior wall is unremarkable. Right Kidney: wnl Left Kidney: Small in size Bladder: wnl Bilateral Jets seen: No IMPRESSION: Unremarkable renal ultrasound. Left kidney is smaller than the right.
[2022-10-24 21:04] VITALS: RESP 16
[2022-10-24] MEDS ORDERED: ALBUTEROL NEBULIZED 2.5 MG/3 ML INHALATION PRN (22:00)
[2022-10-24] MEDS ORDERED: LIDOCAINE 2% GLYDO JELLY 11 ML APPL MUCOUS MEM PRN (22:00)
[2022-10-24] MEDS ORDERED: traMADol 50 MG TAB PO PRN (22:00)
[2022-10-24] MEDS: LATANOPROST 0.005% OPHTH DROPS 2.5 ML BTL BOTH EYES SCH (22:30)
[2022-10-24] MEDS: SODIUM CHLORIDE 0.9% 1,000 ML IV SCH (22:30)
[2022-10-25] MEDS: LEVOTHYROXINE 25 MCG TAB PO SCH (05:57)
[2022-10-25] MEDS: ATORVASTATIN 20 MG TAB PO SCH (08:43)
[2022-10-25] MEDS: CHOLECALCIFEROL 25 MCG (1000 IU) TABLET PO SCH (08:43)
[2022-10-25] MEDS: FAMOTIDINE 20 MG TAB PO SCH (08:43)
[2022-10-25] MEDS: IPRATROPIUM 0.5 MG/2.5 ML NEBU INHALATION SCH ×4 (09:04→20:09)
[2022-10-25] MEDS: SYMBICORT 80-4.5 MCG INHALER INHALATION SCH ×2 (09:04→20:09)
[2022-10-25 10:13] LABS: African American GFR (CKD) 56.6 (60.0-200.0); Anion Gap 10.1 mmol/L (10.00-18.00); BUN/Creat Ratio 32.43 Ratio (12.00-20.00); Blood Urea Nitrogen 45.4 mg/dL (9.0-27.0); Calcium 9.2 mg/dL (8.7-10.3); Carbon Dioxide 20.9 mmol/L (20.0-27.5); Magnesium 1.3 mg/dL (1.5-2.4); Non-African American GFR(CKD) 48.8 (60.0-200.0); Potassium 4.7 mmol/L (3.5-5.5)
[2022-10-25] MEDS: SODIUM CHLORIDE 0.9% 1,000 ML IV SCH (13:46)
--- NOTE | 2022-10-25 19:58 | P.HPIM ---
History of Present Illness H&P Date: 10/24/22 Chief Complaint: Abdominal pain 76-year-old male presents emergency department chief complaint of abdominal pain x4 days. He states that the pain is in the suprapubic area and radiates to the right flank. He states that the pain is sharp and 10/10 when it comes on. He reports nausea along with vomiting yesterday. No vomiting today. Denies dysuria, fever, chills. Denies chest pain, shortness of breath. He has an incisional hernia in the epigastric region where his prior cholecystectomy incision was. Prior abdominal surgeries include cholecystectomy. Past medical h istory includes throat cancer for which he underwent radiation and states that "it is gone." Workup in ED including CT abdomen and pelvis without reveals no abnormality; abdominal ultrasound was completed which does not show any kidney or bladder acute issues and no hydronephrosis Blood work reveals CBC within normal limit, CMP shows creatinine of 2.34 with B UN of 57 which is significantly worsened compared to last blood consult Review of Systems REVIEW OF SYSTEMS: CONSTITUTIONAL: No fever, no malaise, no fatigue. HEENT: No recent visual problems or hearing problems. Denied any sore throat. CARDIOVASCULAR: No chest pain, orthopnea, PND, no palpitations, no syncope. PULMONARY: No shortness of breath, no cough, no hemoptysis. GASTROINTESTINAL: No diarrhea, no nausea, no vomiting, no abdominal pain. NEUROLOGICAL: No headaches, no weakness, no numbness. HEMATOLOGICAL: Denies any bleeding or petechiae. GENITOURINARY: Denies any burning micturition, frequency, or urgency. MUSCULOSKELETAL/RHEUMATOLOGICAL: Denies any joint pain, swelling, or any muscle pain. ENDOCRINE: Denies any polyuria or polydipsia. The rest of the 14-point review of systems is negative. Past Medical History Past Medical History: Cancer, COPD, GERD/Reflux, Hyperlipidemia, Hypertension, Osteoarthritis (OA), Thyroid Disorder Additional Past Medical History / Comment(s): incisional hernia, varicose veins, hx hiatal hernia, carpal tunnel-kaleb, throat cancer History of Any Multi-Drug Resistant Organisms: None Reported Past Surgical History: Cholecystectomy, Hernia Repair, Joint Replacement Additional Past Surgical History / Comment(s): left knee replacement, rt shoulder surgery, kaleb cataracts with lens implants Past Anesthesia/Blood Transfusion Reactions: No Reported Reaction Past Psychological History: No Psychological Hx Reported Smoking Status: Former smoker Past Alcohol Use History: Daily Past Drug Use History: None Reported - Past Family History Mother Family Medical History: Cancer Father Family Medical History: Cancer Daughter(s) Family Medical History: Cancer Additional Family Medical History / Comment(s): liver and kidney Medications and Allergies Home Medications Medication Instructions Recorded Confirmed Type Levothyroxine Sodium [Synthroid] 25 mcg PO DAILY 12/07/13 10/24/22 History Omeprazole [PriLOSEC] 20 mg PO DAILY 04/13/18 10/24/22 History Albuterol Sulfate [Ventolin HFA] 2 puff INHALATION RT-Q4H PRN 09/22/19 10/24/22 History Latanoprost/Pf [Latanoprost 0.005% 1 drop BOTH EYES HS 05/09/20 10/24/22 History [place]] Cholecalciferol [Vitamin D3 (25 50 mcg PO DAILY 12/20/20 10/24/22 History Mcg = 1000 Iu)] traMADol HCL 50 mg PO QID PRN 04/15/22 10/24/22 History Atorvastatin [Lipitor] 20 mg PO DAILY 10/24/22 10/24/22 History Azelastine HCl [Astelin Nasal 2 sprays EA NOSTRIL BID PRN 10/24/22 10/24/22 History [place]] Benazepril HCl 20 mg PO DAILY 10/24/22 10/24/22 History Fluticasone/Umeclidin/Vilanter 1 puff INHALATION RT-DAILY 10/24/22 10/24/22 History [Trelegy Ellipta 100-62.5-25] Lidocaine Viscous 2% [Xylocaine 15 ml MUCOUS MEM Q3H PRN 10/24/22 10/24/22 History Viscous] Allergies Allergy/AdvReac Type Severity Reaction Status Date / Time No Known Allergies Allergy Verified 10/24/22 21:24 Physical Exam Vitals: Vital Signs Temp Pulse Pulse Resp BP BP Pulse Ox 10/24/22 21:47 98 F 54 L 16 142/67 96 10/24/22 21:03 68 16 120/80 97 10/24/22 19:00 98 F 91 18 134/61 96 10/24/22 14:14 98.1 F 61 20 117/66 95 Intake and Output 0510/24/22 10/25/22 14:59 22:59 06:59 Other: Weight 74.843 kg 74.843 kg PHYSICAL EXAMINATION: GENERAL: The patient is alert and oriented x3, not in any acute distress. Well developed, well nourished. HEENT: Pupils are round and equally reacting to light. EOMI. No scleral icterus. No conjunctival pallor. Normocephalic, atraumatic. No pharyngeal erythema. No thyromegaly. CARDIOVASCULAR: S1 and S2 present. No murmurs, rubs, or gallops. PULMONARY: Chest is clear to auscultation, no wheezing or crackles. ABDOMEN: Soft, nontender, nondistended, normoactive bowel sounds. No palpable organomegaly. MUSCULOSKELETAL: No joint swelling or deformity. EXTREMITIES: No cyanosis, clubbing, or pedal edema. NEUROLOGICAL: Gross neurological examination did not reveal any focal deficits. SKIN: No rashes. Results CBC & Chem 7: 10/24/22 17:04 10/25/22 05:37 Labs: Abnormal Lab Results - Last 24 Hours (Table) 10/24/22 10/24/22 10/24/22 Range/Units 17:04 17:04 17:04 Lymphocytes # 0.9 L (1.0-4.8) k/uL Carbon Dioxide 18 L (22-30) mmol/L BUN 57 H (9-20) mg/dL Creatinine 2.34 H (0.66-1.25) mg/dL Glucose 106 H (74-99) mg/dL Urine Protein Trace H (Negative) Thrombosis Risk Factor Assmnt - Choose All That Apply Each Factor Represents 1 point: Abnormal pulmonary function (COPD) Each Risk Factor Represents 3 Points: Age 75 years or older Thrombosis Risk Factor Assessment Total Risk Factor Score: 4 Thrombosis Risk Factor Assessment Level: Moderate Risk Assessment and Plan Assessment: 1. Acute renal failure; creatinine is markedly elevated at 2.34 with B UN of 57; likely dehydration - We will start patient IV fluids; monitor strict SUZANNE's, daily weights, renal function and electrolytes - Avoid nephrotoxins and hypotension -- CT of abdomen and abdominal ultrasound is negative for any acute process or hydronephrosis 2. Hypertension; patient takes Benzapril 20 mg daily which will be placed on hold till renal function improves 3. Hyperlipidemia; Lipitor 20 mg daily 4. Hypothyroidism; levothyroxin 25 MCG daily 5. COPD/asthma; not in exacerbation; continue with home inhaler therapy 6. GERD/gastritis; continue home PPI therapy 7. Osteoarthritis
--- NOTE | 2022-10-25 19:59 | P.PN ---
Subjective Progress Note Date: 10/25/22 76-year-old male presents emergency department chief complaint of abdominal pain x4 days. He states that the pain is in the suprapubic area and radiates to the right flank. He states that the pain is sharp and 10/10 when it comes on. He reports nausea along with vomiting yesterday. No vomiting today. Denies dysuria, fever, chills. Denies chest pain, shortness of breath. He has an incisional hernia in the epigastric region where his prior cholecystectomy incision was. Prior abdominal surgeries include cholecystectomy. Past medical history includes throat cancer for which he underwent radiation and states that "it is gone." Workup in ED including CT abdomen and pelvis without reveals no abnormality; abdominal ultrasound was completed which does not show any kidney or bladder acute issues and no hydronephrosis Blood work reveals CBC within normal limit, CMP shows creatinine of 2.34 with B UN of 57 which is significantly worsened compared to last blood consult Objective - Vital Signs Vital signs: Vital Signs Temp 98.7 F 10/25/22 07:36 Pulse 60 10/25/22 09:16 Resp 16 10/25/22 07:36 BP 121/62 10/25/22 07:36 Pulse Ox 100 10/25/22 09:05 FiO2 Intake & Output 10/24/22 10/25/22 10/25/22 18:59 06:59 18:59 Intake Total 590 Output Total 41 Balance 549 Weight 74.843 kg 74.843 kg Intake: Oral 590 Output: Post Void Residual 41 Other: # Voids 2 - Exam PHYSICAL EXAMINATION: GENERAL: The patient is alert and oriented x3, not in any acute distress. Well developed, well nourished. HEENT: Pupils are round and equally reacting to light. EOMI. No scleral icterus. No conjunctival pallor. Normocephalic, atraumatic. No pharyngeal erythema. No thyromegaly. CARDIOVASCULAR: S1 and S2 present. No murmurs, rubs, or gallops. PULMONARY: Chest is clear to auscultation, no wheezing or crackles. ABDOMEN: Soft, nontender, nondistended, normoactive bowel sounds. No palpable organomegaly. MUSCULOSKELETAL: No joint swelling or deformity. EXTREMITIES: No cyanosis, clubbing, or pedal edema. NEUROLOGICAL: Gross neurological examination did not reveal any focal deficits. SKIN: No rashes. - Labs CBC & Chem 7: 10/24/22 17:04 10/25/22 05:37 Labs: Abnormal Lab Results - Last 24 Hours (Table) 10/24/22 10/24/22 10/24/22 Range/Units 17:04 17:04 17:04 Lymphocytes # 0.9 L (1.0-4.8) k/uL Carbon Dioxide 18 L (22-30) mmol/L BUN 57 H (9-20) mg/dL Creatinine 2.34 H (0.66-1.25) mg/dL Glucose 106 H (74-99) mg/dL Urine Protein Trace H (Negative) Assessment and Plan Assessment: 1. Acute renal failure; creatinine is markedly elevated at 2.34 with B UN of 57; likely dehydration - We will start patient IV fluids; monitor strict SUZANNE's, daily weights, renal function and electrolytes - Avoid nephrotoxins and hypotension -- CT of abdomen and abdominal ultrasound is negative for any acute process or hydronephrosis 2. Hypertension; patient takes Benzapril 20 mg daily which will be placed on hold till renal function improves 3. Hyperlipidemia; Lipitor 20 mg daily 4. Hypothyroidism; levothyroxin 25 MCG daily 5. COPD/asthma; not in exacerbation; continue with home inhaler therapy 6. GERD/gastritis; continue home PPI therapy 7. Osteoarthritis
[2022-10-25] MEDS: LATANOPROST 0.005% OPHTH DROPS 2.5 ML BTL BOTH EYES SCH (20:37)
[2022-10-26] MEDS: SODIUM CHLORIDE 0.9% 1,000 ML IV SCH ×2 (01:56→14:35)
[2022-10-26] MEDS: LEVOTHYROXINE 25 MCG TAB PO SCH (06:22)
[2022-10-26] MEDS: IPRATROPIUM 0.5 MG/2.5 ML NEBU INHALATION SCH ×3 (07:26→15:18)
[2022-10-26] MEDS: SYMBICORT 80-4.5 MCG INHALER INHALATION SCH (07:26)
[2022-10-26] MEDS: ATORVASTATIN 20 MG TAB PO SCH (07:56)
[2022-10-26] MEDS: FAMOTIDINE 20 MG TAB PO SCH (07:56)
[2022-10-26] MEDS: CHOLECALCIFEROL 25 MCG (1000 IU) TABLET PO SCH (07:56)
[2022-10-26 09:47] LABS: Anion Gap 8.5 mmol/L (10.00-18.00); BUN/Creat Ratio 27.69 Ratio (12.00-20.00); Blood Urea Nitrogen 28.8 mg/dL (9.0-27.0); Calcium 8.8 mg/dL (8.7-10.3); Carbon Dioxide 20.9 mmol/L (20.0-27.5); Non-African American GFR(CKD) 69.9 (60.0-200.0); Potassium 4.4 mmol/L (3.5-5.5)
[2022-10-26 11:20] LABS: Basophils # (A) 0.06 X 10*3/uL (0.00-0.10); Eosinophils # (A) 0.34 X 10*3/uL (0.04-0.35); Eosinophils % (A) 5.9 %; HCT 36.3 % (39.6-50.0); HGB 11.8 g/dL (13.0-17.0); Immature Grans, Automated 0.3 %; Lymphocytes % (A) 15.6 %; MCH 30.7 pg (27.0-32.0); MCHC 32.5 g/dL (32.0-37.0); MCV 94.5 fL (80.0-97.0); Mean Platelet Volume 9.6 fL (9.5-12.2); Monocytes # (A) 0.72 X 10*3/uL (0.20-1.00); Monocytes % (A) 12.5 %; NRBC Per 100 WBC 0 /100 WBCS (0.0-0.0); Neutrophils # (A) 3.72 X 10*3/uL (1.80-7.70); Neutrophils % (A) 64.7 %; Platelet Count 172 X 10*3/uL (140-440); RBC 3.84 X 10*6/uL (4.40-5.60); RDW 13.8 % (11.5-14.5); WBC 5.76 X 10*3/uL (4.50-10.00)
[2022-10-26 15:42] VITALS: BP 126/81; PULSE 71; TEMP 98.5
--- NOTE | 2022-10-31 20:43 | P.DS ---
Providers Date of admission: 10/24/22 20:01 Expected date of discharge: 10/26/22 Attending physician: Jesus Kerr Primary care physician: Cali Guerra [facility] Course: 76-year-old male presents emergency department chief complaint of abdominal pain x4 days. He states that the pain is in the suprapubic area and radiates to the right flank. He states that the pain is sharp and 10/10 when it comes on. He reports nausea along with vomiting yesterday. No vomiting today. Denies dysuria, fever, chills. Denies chest pain, shortness of breath. He has an incisional hernia in the epigastric region where his prior cholecystectomy incision was. Prior abdominal surgeries include cholecystectomy. Past medical history includes throat cancer for which he underwent radiation and states that "it is gone." Workup in ED including CT abdomen and pelvis without reveals no abnormality; abdominal ultrasound was completed which does not show any kidney or bladder acute issues and no hydronephrosis Blood work reveals CBC within normal limit, CMP shows creatinine of 2.34 with B UN of 57 which is significantly worsened compared to last blood consult 1. Acute renal failure; creatinine is markedly elevated at 2.34 with B UN of 57; likely dehydration - We will start patient IV fluids; monitor strict SUZANNE's, daily weights, renal function and electrolytes - Avoid nephrotoxins and hypotension -- CT of abdomen and abdominal ultrasound is negative for any acute process or hydronephrosis 2. Hypertension; patient takes Benzapril 20 mg daily which will be placed on hold till renal function improves 3. Hyperlipidemia; Lipitor 20 mg daily 4. Hypothyroidism; levothyroxin 25 MCG daily 5. COPD/asthma; not in exacerbation; continue with home inhaler therapy 6. GERD/gastritis; continue home PPI therapy 7. Osteoarthritis Patient Condition at Discharge: Stable Plan - Discharge Summary New Discharge Prescriptions: Continue Levothyroxine Sodium [Synthroid] 25 mcg PO DAILY Omeprazole [PriLOSEC] 20 mg PO DAILY Albuterol Sulfate [Ventolin HFA] 2 puff INHALATION RT-Q4H PRN PRN Reason: Shortness Of Breath Latanoprost/Pf [Latanoprost 0.005% Eye Drop] 1 drop BOTH EYES HS traMADol HCL 50 mg PO QID PRN PRN Reason: Pain Azelastine HCl [Astelin Nasal [place]] 2 sprays EA NOSTRIL BID PRN PRN Reason: Allergy Symptoms Lidocaine Viscous 2% [Xylocaine Viscous] 15 ml MUCOUS MEM Q3H PRN PRN Reason: Pain Fluticasone/Umeclidin/Vilanter [Trelegy Ellipta 100-62.5-25] 1 puff INHALATION RT-DAILY Benazepril HCl 20 mg PO DAILY Cholecalciferol [Vitamin D3 (25 Mcg = 1000 Iu)] 50 mcg PO DAILY Atorvastatin [Lipitor] 20 mg PO DAILY Discharge Medication List Levothyroxine Sodium [Synthroid] 25 mcg PO DAILY 12/07/13 [History] Omeprazole [PriLOSEC] 20 mg PO DAILY 04/13/18 [History] Albuterol Sulfate [Ventolin HFA] 2 puff INHALATION RT-Q4H PRN 09/22/19 [History] Latanoprost/Pf [Latanoprost 0.005% Eye Drop] 1 drop BOTH EYES HS 05/09/20 [History] Cholecalciferol [Vitamin D3 (25 Mcg = 1000 Iu)] 50 mcg PO DAILY 12/20/20 [History] traMADol HCL 50 mg PO QID PRN 04/15/22 [History] Atorvastatin [Lipitor] 20 mg PO DAILY 10/24/22 [History] Azelastine HCl [Astelin Nasal [place]] 2 sprays EA NOSTRIL BID PRN 10/24/22 [History] Benazepril HCl 20 mg PO DAILY 10/24/22 [History] Fluticasone/Umeclidin/Vilanter [Trelegy Ellipta 100-62.5-25] 1 puff INHALATION RT-DAILY 10/24/22 [History] Lidocaine Viscous 2% [Xylocaine Viscous] 15 ml MUCOUS MEM Q3H PRN 10/24/22 [History] Follow up Appointment(s)/Referral(s): Cali Guerra MD [Primary Care Provider] - 1-2 days Discharge Disposition: HOME SELF-CARE
== END 2022-10-26 16:27 | disposition home or self-care (01) ==
LOC: EC 13:46 → 5NMEDONC 20:01 → INTOOBSV 20:01 → 5NMEDONC 21:10 → UNDODISIN 10-26 16:27
PROVIDERS: ADMIT Hospitalist; ATTEND Hospitalist
DX: N17.9 Acute kidney failure, unspecified (principal); K43.2 Incisional hernia without obstruction or gangrene; J44.9 Chronic obstructive pulmonary disease, unspecified; K21.9 Gastro-esophageal reflux disease without esophagitis; E78.5 Hyperlipidemia, unspecified; E03.9 Hypothyroidism, unspecified; I10 Essential (primary) hypertension; I70.0 Atherosclerosis of aorta; Z96.652 Presence of left artificial knee joint; Z98.42 Cataract extraction status, left eye; Z98.41 Cataract extraction status, right eye; Z90.49 Acquired absence of other specified parts of digestive tract; Z85.819 Personal history of malignant neoplasm of unspecified site of lip, oral cavity, and pharynx; Z92.3 Personal history of irradiation; Z79.890 Hormone replacement therapy; Z79.899 Other long term (current) drug therapy; Z96.1 Presence of intraocular lens; Z87.891 Personal history of nicotine dependence; Z80.0 Family history of malignant neoplasm of digestive organs; Z80.51 Family history of malignant neoplasm of kidney; Z80.9 Family history of malignant neoplasm, unspecified
CPT/HCPCS: 96360; 96361 ×3; 96374; 96375; 99285; 36415; 94640 ×4; 94760 ×2; 80053; 80048 ×2; 82150; 83605; 83690; 83735; 85025 ×2; 81003; 76770; 74176; G0378 ×3; J2405; J1885

== ENCOUNTER 2023-05-09 11:50 | Emergency (ER) | payer MEDICARE ==
--- NOTE | 2023-05-09 13:01 | ED ---
General Adult HPI - General Chief complaint: Abdominal Pain Stated complaint: pain in liver area Time Seen by Provider: 05/09/23 12:18 Source: patient, RN notes reviewed, old records reviewed Mode of arrival: ambulatory Limitations: no limitations - History of Present Illness Initial comments: 77 yo male presenting for evaluation of bilateral lower abdominal pain. Pain is been present for the past 2 days. The pain is worse with movement and position. He denies vomiting. He states he's also been somewhat constipated. Denies urinary symptoms. Denies fever. - Related Data Home Medications Medication Instructions Recorded Confirmed Levothyroxine Sodium [Synthroid] 25 mcg PO DAILY 12/07/13 10/24/22 Omeprazole [PriLOSEC] 20 mg PO DAILY 04/13/18 10/24/22 Albuterol Sulfate [Ventolin HFA] 2 puff INHALATION RT-Q4H PRN 09/22/19 10/24/22 Latanoprost/Pf [Latanoprost 0.005% 1 drop BOTH EYES HS 05/09/20 10/24/22 Eye Drop] Cholecalciferol [Vitamin D3 (25 50 mcg PO DAILY 12/20/20 10/24/22 Mcg = 1000 Iu)] traMADol HCL 50 mg PO QID PRN 04/15/22 10/24/22 Atorvastatin [Lipitor] 20 mg PO DAILY 10/24/22 10/24/22 Azelastine HCl [Astelin Nasal 2 sprays EA NOSTRIL BID PRN 10/24/22 10/24/22 [place]] Benazepril HCl 20 mg PO DAILY 10/24/22 10/24/22 Fluticasone/Umeclidin/Vilanter 1 puff INHALATION RT-DAILY 10/24/22 10/24/22 [Trelegy Ellipta 100-62.5-25] Lidocaine Viscous 2% [Xylocaine 15 ml MUCOUS MEM Q3H PRN 10/24/22 10/24/22 Viscous] Allergies Allergy/AdvReac Type Severity Reaction Status Date / Time No Known Allergies Allergy Verified 10/24/22 21:24 Review of Systems ROS Statement: Those systems with pertinent positive or pertinent negative responses have been documented in the HPI. ROS Other: All systems not noted in ROS Statement are negative. Past Medical History Past Medical History: Cancer, COPD, GERD/Reflux, Hyperlipidemia, Hypertension, Osteoarthritis (OA), Thyroid Disorder Additional Past Medical History / Comment(s): incisional hernia, varicose veins, hx hiatal hernia, carpal tunnel-kaleb, throat cancer History of Any Multi-Drug Resistant Organisms: None Reported Past Surgical History: Cholecystectomy, Hernia Repair, Joint Replacement Additional Past Surgical History / Comment(s): left knee replacement, rt s houlder surgery, kaleb cataracts with lens implants Past Anesthesia/Blood Transfusion Reactions: No Reported Reaction Past Psychological History: No Psychological Hx Reported Smoking Status: Former smoker Past Alcohol Use History: Daily Past Drug Use History: None Reported - Past Family History Mother Family Medical History: Cancer Father Family Medical History: Cancer Daughter(s) Family Medical History: Cancer Additional Family Medical History / Comment(s): liver and kidney General Exam Limitations: no limitations General appearance: alert, in no apparent distress Head exam: Present: atraumatic, normocephalic Eye exam: Present: normal appearance, PERRL ENT exam: Present: normal exam Neck exam: Present: normal inspection. Absent: tenderness, meningismus Respiratory exam: Present: normal lung sounds bilaterally. Absent: respiratory distress Cardiovascular Exam: Present: regular rate, normal rhythm GI/Abdominal exam: Present: soft. Absent: distended, tenderness, guarding, rebound, rigid Extremities exam: Present: normal inspection, normal capillary refill Neurological exam: Present: alert, oriented X3, CN II-XII intact. Absent: motor sensory deficit Psychiatric exam: Present: normal affect, normal mood Skin exam: Present: warm, dry, intact Course Vital Signs 05/09/23 12:06 Temperature 97.8 F Pulse Rate 64 Respiratory 16 Rate Blood Pressure 143/67 O2 Sat by Pulse 96 Oximetry Medical Decision Making - Medical Decision Making Was pt. sent in by a medical professional or institution (, PA, NUT CRACKER, urgent care, hospital, or alf...) When possible be specific @ -No Did you speak to anyone other than the patient for history (EMS, parent, family, police, friend...)? What history was obtained from this source @ -No Did you review nursing and triage notes (agree or disagree)? Why? @ -I reviewed and agree with nursing and triage notes Were old charts reviewed (outside hosp., previous admission, EMS record, old EKG, old radiological studies, urgent care reports/EKG's, alf records)? Report findings @ -No old charts were reviewed Differential Diagnosis (chest pain, altered mental status, abdominal pain women, abdominal pain men, vaginal bleeding, weakness, fever, dyspnea, syncope, headache, dizziness, GI bleed, back pain, seizure, CVA, palpatations, mental health, musculoskeletal)? @ -Differential Abdominal Pain Men: Appendicitis, cholecystitis, diverticulosis, ischemic bowel, pancreatitis, hepatitis, UTI, gastroenteritis, AAA, incarcerated hernia, bowel obstruction, constipation, inflammatory bowel, hepatitis, peptic ulcer disease, splenic infarction, perforated viscus, testicular torsion, this is not meant to be an all-inclusive list EKG interpreted by me (3pts min.). @ -As above X-rays interpreted by me (1pt min.). @ -[KUB shows scattered air-fluid levels, consistent with enteritis or ileus, no dilated small bowel CT interpreted by me (1pt min.). @ -None done U/S interpreted by me (1pt. min.). @ -None done What testing was considered but not performed or refused? (CT, X-rays, U/S, labs)? Why? @ -None What meds were considered but not given or refused? Why? @ -None Did you discuss the management of the patient with other professionals (professionals i.e. , PA, NUT CRACKER, lab, RT, psych nurse, high school social studies tutor, stylist assistant, teacher, air antisubmarine officer, caser)? Give summary @ -No Was smoking cessation discussed for >3mins.? @ -No Was critical care preformed (if so, how long)? @ -No Were there social determinants of health that impacted care today? How? (Homele ssness, low income, unemployed, alcoholism, drug addiction, transportation, low edu. Level, literacy, decrease access to med. care, prison, rehab)? @ -No Was there de-escalation of care discussed even if they declined (Discuss DNR or withdrawal of care, Hospice)? DNR status @ -No What co-morbidities impacted this encounter? (DM, HTN, Smoking, COPD, CAD, Cancer, CVA, ARF, Chemo, Hep., AIDS, mental health diagnosis, sleep apnea, morbid obesity)? @ -None Was patient admitted / discharged? Hospital course, mention meds given and route, prescriptions, significant lab abnormalities, going to OR and other pertinent info. @ -77-year-old male with lower abdominal pain. No tenderness on exam. Pain is described is worse with movement or certain positions. Patient has no fever. Vital signs are stable. Labs are unremarkable including CBC, mild electrolyte abnormality, mild anemia. At this time the patient is advised strict return parameters. He will monitor symptoms. If he should develop worsening pain, vomiting, fever. He will return to the emergency department. Undiagnosed new problem with uncertain prognosis? @ -No Drug Therapy requiring intensive monitoring for toxicity (Heparin, Nitro, Insuli n, Cardizem)? @ -No Were any procedures done? @ -No Diagnosis/symptom? @Lower abdominal pain Acute, or Chronic, or Acute on Chronic? @ acute Uncomplicated (without systemic symptoms) or Complicated (systemic symptoms)? @ -default Side effects of treatment? @ -No Exacerbation, Progression, or Severe Exacerbation? @ -No Poses a threat to life or bodily function? How? (Chest pain, USA, OR, pneumonia, PE, COPD, DKA, ARF, appy, cholecystitis, CVA, Diverticulitis, Homicidal, Suicidal, threat to staff... and all critical care pts) @ -[Low risk at this time - Lab Data Result diagrams: 05/09/23 12:46 05/09/23 12:46 Lab Results 05/09/23 05/09/23 05/09/23 Range/Units 12:46 12:46 12:46 WBC 5.8 (3.8-10.6) k/uL RBC 3.91 L (4.30-5.90) m/uL Hgb 12.4 L (13.0-17.5) gm/dL Hct 37.4 L (39.0-53.0) % MCV 95.7 (80.0-100.0) fL MCH 31.6 (25.0-35.0) pg MCHC 33.0 (31.0-37.0) g/dL RDW 13.5 (11.5-15.5) % Plt Count 306 (150-450) k/uL MPV 7.4 Neutrophils % 74 % Lymphocytes % 14 % Monocytes % 7 % Eosinophils % 2 % Basophils % 1 % Neutrophils # 4.3 (1.3-7.7) k/uL Lymphocytes # 0.8 L (1.0-4.8) k/uL Monocytes # 0.4 (0-1.0) k/uL Eosinophils # 0.1 (0-0.7) k/uL Basophils # 0.0 (0-0.2) k/uL PT 13.0 H (10.0-12.5) sec INR 1.2 H (<1.2) APTT 25.1 (22.0-30.0) sec Sodium 139 (137-145) mmol/L Potassium 3.4 L (3.5-5.1) mmol/L Chloride 103 (98-107) mmol/L Carbon Dioxide 23 (22-30) mmol/L Anion Gap 13 mmol/L BUN 17 (9-20) mg/dL Creatinine 0.94 (0.66-1.25) mg/dL Est GFR (CKD-EPI)AfAm >90 (>60 ml/min/1.73 sqM) Est GFR (CKD-EPI)NonAf 79 (>60 ml/min/1.73 sqM) Glucose 95 (74-99) mg/dL Plasma Lactic Acid Antione (0.7-2.0) mmol/L Calcium 7.8 L (8.4-10.2) mg/dL Total Bilirubin 0.6 (0.2-1.3) mg/dL AST 24 (17-59) U/L ALT 15 (4-49) U/L Alkaline Phosphatase 80 (38-126) U/L Total Protein 6.7 (6.3-8.2) g/dL Albumin 3.3 L (3.5-5.0) g/dL Amylase 50 (30-110) U/L Lipase 72 (23-300) U/L 05/09/23 Range/Units 12:46 WBC (3.8-10.6) k/uL RBC (4.30-5.90) m/uL Hgb (13.0-17.5) gm/dL Hct (39.0-53.0) % MCV (80.0-100.0) fL MCH (25.0-35.0) pg MCHC (31.0-37.0) g/dL RDW (11.5-15.5) % Plt Count (150-450) k/uL MPV Neutrophils % % Lymphocytes % % Monocytes % % Eosinophils % % Basophils % % Neutrophils # (1.3-7.7) k/uL Lymphocytes # (1.0-4.8) k/uL Monocytes # (0-1.0) k/uL Eosinophils # (0-0.7) k/uL Basophils # (0-0.2) k/uL PT (10.0-12.5) sec INR (<1.2) APTT (22.0-30.0) sec Sodium (137-145) mmol/L Potassium (3.5-5.1) mmol/L Chloride (98-107) mmol/L Carbon Dioxide (22-30) mmol/L Anion Gap mmol/L BUN (9-20) mg/dL Creatinine (0.66-1.25) mg/dL Est GFR (CKD-EPI)AfAm (>60 ml/min/1.73 sqM) Est GFR (CKD-EPI)NonAf (>60 ml/min/1.73 sqM) Glucose (74-99) mg/dL Plasma Lactic Acid Antione 1.0 (0.7-2.0) mmol/L Calcium (8.4-10.2) mg/dL Total Bilirubin (0.2-1.3) mg/dL AST (17-59) U/L ALT (4-49) U/L Alkaline Phosphatase (38-126) U/L Total Protein (6.3-8.2) g/dL Albumin (3.5-5.0) g/dL Amylase (30-110) U/L Lipase (23-300) U/L Disposition Clinical Impression: Abdominal pain Disposition: HOME SELF-CARE Condition: Fair Instructions (If sedation given, give patient instructions): Abdominal Pain (ED) Is patient prescribed a controlled substance at d/c from ED?: No Referrals: Cali Guerra MD [Primary Care Provider] - 1-2 days Time of Disposition: 14:32
[2023-05-09 13:10] LABS: Basophils % (A) 1 %; Eosinophils # (A) 0.1 k/uL (0-0.7); Eosinophils % (A) 2 %; HCT 37.4 % (39.0-53.0); HGB 12.4 gm/dL (13.0-17.5); Lymphocytes # (A) 0.8 k/uL (1.0-4.8); Lymphocytes % (A) 14 %; MCH 31.6 pg (25.0-35.0); MCV 95.7 fL (80.0-100.0); Mean Platelet Volume 7.4; Monocytes # (A) 0.4 k/uL (0-1.0); Monocytes % (A) 7 %; Neutrophils # (A) 4.3 k/uL (1.3-7.7); Neutrophils % (A) 74 %; Platelet Count 306 k/uL (150-450); RBC 3.91 m/uL (4.30-5.90); RDW 13.5 % (11.5-15.5); WBC 5.8 k/uL (3.8-10.6)
[2023-05-09 13:23] LABS: INR 1.2 (<1.2); Partial Thromboplastin Time 25.1 sec (22.0-30.0)
[2023-05-09 13:30] LABS: ALT 15 U/L (4-49); AST 24 U/L (17-59); African American GFR (CKD) >90 (>60 ml/min/1.73 sqM); Albumin 3.3 g/dL (3.5-5.0); Alkaline Phosphatase 80 U/L (38-126); Amylase 50 U/L (30-110); Anion Gap 13 mmol/L; Blood Urea Nitrogen 17 mg/dL (9-20); Calcium 7.8 mg/dL (8.4-10.2); Carbon Dioxide 23 mmol/L (22-30); Chloride 103 mmol/L (98-107); Glucose 95 mg/dL (74-99); Lipase 72 U/L (23-300); Non-African American GFR(CKD) 79 (>60 ml/min/1.73 sqM); Potassium 3.4 mmol/L (3.5-5.1); Sodium 139 mmol/L (137-145); Total Bilirubin 0.6 mg/dL (0.2-1.3); Total Protein 6.7 g/dL (6.3-8.2)
--- NOTE | 2023-05-09 13:52 | XR ---
EXAMINATION TYPE: XR KUB DATE OF EXAM: 05/09/2023 Comparison: 12/07/2013 Clinical History: 77-year-old male left lower quadrant abdominal pain Findings: Lung bases are clear. No evidence for free intraperitoneal air. Small air-fluid levels in the mid abdominal bowel loops. No dilated small bowel or differential air-f luid levels are seen. Minimal scattered stool. Pelvic phleboliths and aorta by iliac abscess chronic calcifications. Impression: Nonspecific, overall nonobstructive bowel gas pattern. Small air-fluid level centrally in the abdomen could represent an ileus or enteritis.
[2023-05-09 15:02] VITALS: BP 138/80; PULSE 67; RESP 18; TEMP 98.2
== END 2023-05-09 14:40 | disposition home or self-care (01) ==
LOC: EC 11:50
DX: R10.31 Right lower quadrant pain (principal); R10.32 Left lower quadrant pain; E78.5 Hyperlipidemia, unspecified; I10 Essential (primary) hypertension; J44.9 Chronic obstructive pulmonary disease, unspecified; K21.9 Gastro-esophageal reflux disease without esophagitis; E07.9 Disorder of thyroid, unspecified; Z87.891 Personal history of nicotine dependence; Z79.890 Hormone replacement therapy; Z79.899 Other long term (current) drug therapy
CPT/HCPCS: 36415; 74018; 80053; 82150; 83605; 83690; 85025; 85610; 85730; 99284

== ENCOUNTER 2023-05-22 11:57 | Day surgery (SDC) | payer MEDICARE ==
[~2023-05-22 11:57] MED LIST changes: -DEXAMETHASONE SOD PHOSPHATE 4 MG/ML 1 ML VIAL IV ONE; -DEXAMETHASONE SOD PHOSPHATE 4 MG/ML 1 ML VIAL IV PRN; -FAMOTIDINE 20 MG/2 ML VIAL IV PRN; -HYDROmorphone 0.5 MG/0.5 ML SYRINGE IVP PRN; -ONDANSETRON 4 MG/2 ML VIAL IVP ONE; -ONDANSETRON 4 MG/2 ML VIAL IVP PRN
[2023-05-22 13:27] VITALS: TEMP 97.6
[2023-05-22] MEDS ORDERED: LIDOCAINE 1% INJ 10MG/ML (20 ML MDV) ONE (14:32)
[2023-05-22] MEDS ORDERED: PROPOFOL 10 MG/ML 20 ML VIAL IV ONE (14:32)
--- NOTE | 2023-05-22 15:05 | P.PCN ---
Date of Procedure: 05/22/23 Procedure(s) Performed: BRIEF HISTORY: Patient is a 77-year-old pleasant white male scheduled for an elective colonoscopy as a part of screening for colon cancer/positive cologuard. PROCEDURE PERFORMED: Colonoscopy with snare polypectomy. PREOPERATIVE DIAGNOSIS: Screening for colon cancer/positive cologuard. IV sedation per Anesthesia. PROCEDURE: After informed consent was obtained, the patient, was brought into the endoscopy unit. IV sedation was administered by Anesthesia under continuous monitoring. Digital rectal examination was normal. Initially the Olympus CF-160 flexible video colonoscope was then inserted in the rectum, gradually advanced into the cecum without any difficulty. Careful examination was performed as the scope was gradually being withdrawn. Ileocecal valve and the appendiceal orifice were visualized and appeared normal. Prep was excellent. Mucosa of the cecum, ascending colon, appeared normal. In the transverse colon there was a 5 mm and 2 cm linear polyp that was removed by snare polypectomy. In the sigmoid: There was a 5 mm polyp that was removed by snare polypectomy. Rest of the transverse colon, descending colon, sigmoid colon, and rectum appeared normal. Scattered sigmoid diverticulosis Retroflexion was performed in the rectum and no lesions were seen. The patient tolerated the procedure well. IMPRESSION: 5 mm and 2 cm linear polyp in the proximal transverse colon status post snare polypectomy 5 mm; sigmoid polyp status post polypectomy Scattered sigmoid diverticulosis RECOMMENDATIONS: Findings of this examination were discussed with the patient as well as his family. He was advised to follow with the biopsy results. If the biopsy results adenoma he can have a repeat colonoscopy in 3 years..
[2023-05-22 15:29] VITALS: RESP 16
[2023-05-22 15:52] VITALS: BP 160/84; PULSE 66
== END 2023-05-22 15:56 | disposition home or self-care (01) ==
LOC: ORWHC2ENDO 11:57
PROVIDERS: ATTEND Internal Medicine Gastroenterology
DX: D12.3 Benign neoplasm of transverse colon (principal); D12.5 Benign neoplasm of sigmoid colon; K57.30 Diverticulosis of large intestine without perforation or abscess without bleeding; I73.9 Peripheral vascular disease, unspecified; I10 Essential (primary) hypertension; E78.5 Hyperlipidemia, unspecified; J44.9 Chronic obstructive pulmonary disease, unspecified; Z79.51 Long term (current) use of inhaled steroids; Z79.899 Other long term (current) drug therapy; Z90.49 Acquired absence of other specified parts of digestive tract
CPT/HCPCS: 88305; 45385; J2001; J2704

== ENCOUNTER → 2023-11-24 | Outpatient (CLI) | payer MEDICARE ==
[2023-11-24 15:30] LABS: T4, Free (Free Thyroxine) 1.15 ng/dL (0.80-1.80)
== END | disposition home or self-care (01) ==
LOC: LABWHC1 10:18
PROVIDERS: ATTEND Otolaryngology
DX: Z85.89 Personal history of malignant neoplasm of other organs and systems (principal)
CPT/HCPCS: 36415; 84439; 84443

== ENCOUNTER → 2024-12-09 | Outpatient (CLI) | payer MEDICARE ==
--- NOTE | 2024-12-12 15:48 | PE ---
EXAMINATION TYPE: PET CT fusion skull to thigh DATE OF EXAM: 12/09/2024 CLINICAL INDICATION:Male, 79 years old with history of R91.8 multiple lung nodules; TECHNIQUE: Following the intravenous administration of 12.26 mCi of F-18 FDG, whole body images are performed from the skull base to the midthigh. Images are reviewed on the computer in the coronal, axial, and sagittal planes. Reconstructed rotating images are created on independent workstation and reviewed on the computer. A non-contrast CT is performed in conjunction with the PET scan. Glucose level 88 mg/dL CT DLP: 764.7 mGycm, Automated exposure control for dose reduction was used. COMPARISON: CT 11/14/2024, 10/24/2022, 04/10/2021, PET/CT 04/22/2023, MRI: None FINDINGS: Mediastinal SUV mean is 0.6. Hepatic parenchyma SUV mean is 1.4. SKULL BASE AND NECK: No suspicious radiotracer activity. CHEST, MEDIASTINUM, AND HILAR REGION: Right middle lobe 5.5 mm groundglass pulmonary nodule (series 4, image 125). No suspicious FDG activi ty. Posterior upper lobe reticular opacity with some mild FDG activity. Demonstrated a maximum SUV of 2.6 . Other reticular scattered opacities within the left upper lobe without suspicious FDG activity above background ABDOMEN AND PELVIS: No suspicious radiotracer activity. MUSCULOSKELETAL STRUCTURES: No suspicious radiotracer activity. OTHER CT: Bilateral aphakia. Advanced atherosclerotic plaque within the bilateral carotid bifurcation s. Atherosclerotic calcification of the aorta and its branches. Mild to moderate coronary arterial ca lcifications. Stable right adrenal gland lipid rich adenoma measuring 1.6 cm. The right hepatic dome 2 cm cyst. Colonic diverticulosis without evidence for acute diverticulitis. Right shoulder arthropat hy with postsurgical changes. Centrilobular emphysematous changes. Linear scarring within the left up per lobe and lingula. Healing posterior right 10th rib fracture with some minimal callus formation. G allbladder surgically absent. IMPRESSION: Posterior right upper lobe pulmonary reticular opacity with low level FDG activity. The other scatter ed pulmonary nodules/opacities do not demonstrate FDG activity. The right upper lobe pulmonary nodule probably represents an infectious/inflammatory nodule. Recommend follow-up CT chest in 3 months. [facility], , 12/12/2024 3:45 PM
== END | disposition home or self-care (01) ==
LOC: RADPETMAIN 06:42
PROVIDERS: ATTEND Internal Medicine Critical Care Medicine
DX: R91.8 Other nonspecific abnormal finding of lung field (principal)
CPT/HCPCS: 78815; A9552